=== PATIENT | female | born 1940 | race American Indian/Alaskan Native ===

== ENCOUNTER 2018-06-03 12:55 | Inpatient (IN) | payer MEDICARE ==
[2018-06-03 12:56] VITALS: BMI 31.1
[2018-06-03] MEDS ORDERED: Sodium Chloride 0.9% 1,000 ML IV STA (14:13)
[2018-06-03] MEDS ORDERED: Insulin Regular 1 UNITS/0.01 ML ML IV STA (14:13)
[2018-06-03 14:16] LABS: BASO # 0.03 K/mm3 (0.0-2.0); BASO % 0.4 % (0.0-3.0); EOS # 0.1 (0.0-0.7); EOS % 1.7 % (1.5-5.0); GRAN # 4.5 (1.4-6.5); GRAN % 65.2 % (50.0-68.0); HEMOGLOBIN 14.1 g/dL (12.0-16.0); LYMPH # 1.7 (1.2-3.4); LYMPH % 24.6 % (22.0-35.0); MEAN CELL VOLUME 76.4 fl (80.0-105.0); MEAN CORPUSCULAR HGB CONC 34.1 g/dl (31.0-37.0); MEAN PLATELET VOLUME 11.7 fl (7.0-11.0); MONO # 0.6 (0.1-0.6); MONO % 8.1 % (1.0-6.0); RBC 5.42 10^6/uL (3.5-6.1); RED CELL DISTRIBUTION WIDTH 13.7 % (11.5-14.5); WHITE BLOOD COUNT 6.9 10^3/ul (4.5-11.0)
[2018-06-03 14:38] LABS: ALB/GLOB RATIO 1.3 (1.1-1.8); ALBUMIN 3.8 g/dL (3.0-4.8); CALCIUM 9.7 mg/dL (8.4-10.5)
--- NOTE | 2018-06-03 14:40 | ED PDOC ---
Arrival/HPI - History of Present Illness Time/Duration: 24 hours Symptom Course: Improving Activities at Onset: Light Context: Home - General Chief Complaint: High Blood Sugar Time Seen by Provider: 06/03/18 13:32 - History of Present Illness Narrative History of Present Illness (Text): 06/03/18 14:36 This is a 78 year old female with PMH of diabetes, HT, CABG in 2014 presenting to the ER today for hyperglycemia. Patient was sent to the ER by Dr. Hoyt for possible hyperosmolar hyperglycemic state. Glucose upon ED arrival was 445. Patient admits to forget taking her medications and family members are concerned about patient's increasing confusion in recent months. Patient states she has no current symptoms and denies chest pain, SOB, abdominal pain, headaches, urinary symptoms, fevers, chills, nausea, vomiting, recent travel and recent sickness. Patient admits to 50 pound unintentional weight loss over the last 3 months. (Bari Mccormick) Past Medical History - Provider Review Nursing Documentation Reviewed: Yes - Infectious Disease Hx of Infectious Diseases: None - Reproductive Menopause: Yes - Cardiac Hx HI: Yes (1997) Hx Hypertension: Yes Hx Pacemaker: No - Neurological Hx Paralysis: No - Endocrine/Metabolic Hx Diabetes Mellitus Type 2: Yes - Hematological/Oncological Hx Blood Transfusions: No - Musculoskeletal/Rheumatological Hx Musculoskeletal Disorders: Yes - Psychiatric Hx Emotional Abuse: No Hx Physical Abuse: No Hx Substance Use: No - Anesthesia Hx Anesthesia Reactions: No Hx Malignant Hyperthermia: No - Suicidal Assessment Feels Threatened In Home Enviroment: No Family/Social History - Physician Review Nursing Documentation Reviewed: Yes Family/Social History: Unknown Family HX Smoking Status: Unknown If Ever Smoked Hx Alcohol Use: No Hx Substance Use: No Allergies/Home Meds Allergies/Adverse Reactions: Allergies egg Allergy (Verified 06/03/18 13:14) RASH Penicillins Allergy (Verified 06/03/18 13:14) RASH Home Medications: Home Meds Medication Instructions Recorded Confirmed Clopidogrel [Plavix] 75 mg PO DAILY 04/02/15 06/03/18 Rosuvastatin Calcium [Crestor] 40 mg PO QPM 04/02/15 06/03/18 Alendronate [Fosamax] 70 mg PO DAILY 06/03/18 06/03/18 Olmesartan [BenicarNf] 40 mg PO DAILY 06/03/18 06/03/18 Review of Systems - Physician Review All systems were reviewed & negative as marked: Yes - Review of Systems Constitutional: Weight Change, Other (weight loss of 50 pounds over 3 months). absent: Fevers, Night Sweats Eyes: Normal ENT: Normal Respiratory: Normal. absent: SOB Cardiovascular: Normal. absent: Chest Pain, Syncope Gastrointestinal: Normal Genitourinary Female: Normal Musculoskeletal: Normal Skin: Normal Neurological: Normal Endocrine: Normal Hemo/Lymphatic: Normal Physical Exam Temperature: Afebrile Blood Pressure: Hypertensive Pulse: Regular Respiratory Rate: Normal Appearance: Positive for: Well-Appearing, Non-Toxic, Comfortable Pain Distress: None Mental Status: Positive for: other (Patient is Alert and Oriented x 3 but has delayed answers) Finger Stick Blood Glucose: 445 - Systems Exam Head: Present: Atraumatic, Normocephalic Pupils: Present: PERRL Extroacular Muscles: Present: EOMI Conjunctiva: Present: Normal Mouth: Present: Moist Mucous Membranes Neck: Present: Normal Range of Motion Respiratory/Chest: Present: Clear to Auscultation, Good Air Exchange. No: Respiratory Distress, Accessory Muscle Use Cardiovascular: Present: Regular Rate and Rhythm, Normal S1, S2. No: Murmurs Abdomen: No: Tenderness, Distention, Peritoneal Signs Back: Present: Normal Inspection Upper Extremity: Present: Normal Inspection. No: Cyanosis, Edema Lower Extremity: Present: Normal Inspection. No: Edema Neurological: Present: Speech Normal, Motor Func Grossly Intact, Normal Sensory Function Skin: Present: Warm, Dry, Normal Color. No: Rashes Psychiatric: Present: Alert, Normal Insight, Normal Concentration, Other ( Patient is Alert and Oriented x 3 but has delayed answers when answering questions) Vital Signs Temp Pulse Resp BP Pulse Ox 06/03/18 19:29 85 17 167/71 H 98 06/03/18 16:03 82 18 177/83 H 97 06/03/18 13:09 99.1 F 90 18 152/64 H 98 Medical Decision Making ED Course and Treatment: 06/03/18 17:[address] ogden. patient to be admitted for severe hyperglycemia. as per dr. hoyt, patient has been off her insulin for six months, has a hx of dementia and cannot take care of her self. patient will likely need to be restarted on insulin regimen and eventual placement as she is coming from home and would require safe disposition. (Diogo Jensen) 06/03/18 14:49 Impression: This is a 78 year old female with PMH of diabetes, HT, CABG in 2014 presenting to the ER today for hyperglycemia Differential: Diabetes vs. HHS vs. dementia Plan: Glucose was 445 upon ED admission. Will give fluids and insulin. Check blood work and U/A. Progress: 06/03/18 14:[address] Hoyt who said patient was found by family member with AMS and possibly worsening dementia. Patient to require placement upon discharge. (Bari Mccormick) - Lab Interpretations Microbiology Results: Microbiology Results 06/03/18 16:39 Urine,Clean Catch Urine Culture - Preliminary Gram Positive Cocci Lab Results: 06/03/18 13:42 06/03/18 13:42 Lab Results 06/03/18 17:15: POC Glucose (mg/dL) 375 H 06/03/18 16:49: Urine Color Straw, Urine Appearance Clear, Urine pH 6.5, Ur Specific [place] <= 1.005, Urine Protein Negative, Urine Glucose (UA) >=1000, Urine Ketones Negative, Urine Blood Negative, Urine Nitrate Negative, Urine Bilirubin Negative, Urine Urobilinogen 0.2, Ur Leukocyte Esterase Trace H, Urine RBC Negative, Urine WBC 0 - 2, Ur Epithelial Cells 0 - 2, Urine Bacteria Neg 06/03/18 15:33: POC Glucose (mg/dL) 391 H 06/03/18 14:40: pO2 106 H, VBG pH 7.43, VBG pCO2 41.0, VBG HCO3 27.2, VBG O2 Sat (Calc) 99.5 H, VBG Base Excess 2.6 H 06/03/18 13:42: Sodium 135, Potassium 4.5, Chloride 95 L, Carbon Dioxide 28, Anion Gap 17, BUN 16, Creatinine 1.1, Est GFR ( Amer) 58, Est GFR (Non- Af Amer) 48, Random Glucose 597 H* D, Calcium 9.7, Total Bilirubin 0.6, AST 23, ALT 12, Alkaline Phosphatase 84, Total Protein 6.7, Albumin 3.8, Globulin 2.9, Albumin/Globulin Ratio 1.3 06/03/18 13:42: WBC 6.9, RBC 5.42, Hgb 14.1, Hct 41.4, MCV 76.4 L, MCH 26.0, MCHC 34.1, RDW 13.7, Plt Count 158, MPV 11.7 H, Gran % 65.2, Lymph % (Auto) 24.6 , [place] % (Auto) 8.1 H, Eos % (Auto) 1.7, Baso % (Auto) 0.4, Gran # 4.50, Lymph # (Auto) 1.7, [place] # (Auto) 0.6, Eos # (Auto) 0.1, Baso # (Auto) 0.03 06/03/18 13:22: POC Glucose (mg/dL) 445 H* - Medication Orders Current Medication Orders: Discontinued Medications Amlodipine Besylate (Norvasc) 5 mg PO DAILY [facility] Last Admin: 06/04/18 11:09 Dose: 5 mg Amlodipine Besylate (Norvasc) 5 mg PO STAT STA Stop: 06/04/18 00:20 Last Admin: 06/04/18 00:42 Dose: 5 mg MAR Pulse and Blood Pressure Document 06/04/18 00:42 IMT (Rec: 06/04/18 00:42 IMT [facility] [id number]) Pulse Pulse Rate (60-90) 73 Blood Pressure Blood Pressure (100/60-150/90) 186/68 Amlodipine Besylate (Norvasc) 10 mg PO DAILY [facility] Last Admin: 06/05/18 08:37 Dose: 10 mg MAR Blood Pressure Document 06/05/18 08:37 BRANDY (Rec: 06/05/18 08:37 BRANDY [id number]) Blood Pressure Blood Pressure (100/60-150/90) 170/81 Amlodipine Besylate (Norvasc) 5 mg PO STAT STA Stop: 06/04/18 19:30 Last Admin: 06/04/18 23:26 Dose: 5 mg MAR Pulse and Blood Pressure Document 06/04/18 23:26 IMT (Rec: 06/04/18 23:26 IMT [id number]) Pulse Pulse Rate (60-90) 74 Blood Pressure Blood Pressure (100/60-150/90) 173/72 Clopidogrel Bisulfate (Plavix) 75 mg PO DAILY [facility] Last Admin: 06/05/18 08:38 Dose: 75 mg Dextrose (Dextrose 50% Inj) 0 ml IV STAT PRN; Protocol PRN Reason: Hypoglycemia Protocol Sodium Chloride (Sodium Chloride 0.9%) 1,000 mls @ 999 mls/hr IV .Q1H1M STA Stop: 06/03/18 15:13 Last Admin: 06/03/18 14:37 Dose: 999 mls/hr eMAR Start Stop Document 06/03/18 14:37 MR (Rec: 06/03/18 14:37 [id number]) Intravenous Solution Start Date 06/03/18 Start Time 14:37 End Date 06/03/18 End time 15:37 Total Infusion Time 60 Dextrose (Dextrose 5% In Water 1000 Ml) 1,000 mls @ 0 mls/hr IV .Q0M PRN; Protocol; Per Protocol PRN Reason: Hypoglycemia Protocol Sodium Chloride (Sodium Chloride 0.9%) 1,000 mls @ 100 mls/hr IV .Q10H [place] Last Admin: 06/03/18 17:38 Dose: 100 mls/hr eMAR Start Stop Document 06/03/18 17:38 MR (Rec: 06/03/18 17:38 [id number]) Intravenous Solution Start Date 06/03/18 Start Time 17:38 Insulin Detemir (Levemir) 12 unit SC HS [place] Last Admin: 06/03/18 22:29 Dose: 12 units MAR Blood Glucose Document 06/03/18 22:29 IMT (Rec: 06/03/18 22:29 IMT [id number]) Blood Glucose Finger Stick Blood Glucose (70-120) 267 Subcutaneous Administrations Document 06/03/18 22:29 IMT (Rec: 06/03/18 22:29 IMT [id number]) Injection Site MAR Injection Site Left Arm Charges for Administration # of Subcutaneous Administrations 1 Insulin Detemir (Levemir) 6 unit SC HS [place] Last Admin: 06/04/18 23:26 Dose: 6 units MAR Blood Glucose Document 06/04/18 23:26 IMT (Rec: 06/04/18 23:26 IMT [id number]) Blood Glucose Finger Stick Blood Glucose (70-120) 219 Subcutaneous Administrations Document 06/04/18 23:26 IMT (Rec: 06/04/18 23:26 IMT [id number]) Injection Site MAR Injection Site Left Arm Charges for Administration # of Subcutaneous Administrations 1 Insulin Human Regular (Humulin R) 10 units IV STAT STA Stop: 06/03/18 14:14 Last Admin: 06/03/18 14:38 Dose: 10 units eMAR Start Stop Document 06/03/18 14:38 (Rec: 06/03/18 14:38 [id number]) Intravenous Solution Start Date 06/03/18 Start Time 14:38 End Date 06/03/18 End time 14:39 Total Infusion Time 1 MAR Blood Glucose Document 06/03/18 14:38 MR (Rec: 06/03/18 14:38 [id number]) Blood Glucose Finger Stick Blood Glucose (70-120) 445 Insulin Human Regular (Humulin R Low) 0 units SC ACHS [place] PRN Reason: Protocol Last Admin: 06/05/18 08:39 Dose: Not Given Non-Admin Reason: Blood Sugar Parameter Lorazepam (Ativan) 2 mg IM ONCE ONE PRN Reason: Protocol Stop: 06/04/18 22:44 Metoprolol Tartrate (Lopressor) 100 mg PO DAILY [facility] Last Admin: 06/05/18 08:37 Dose: 100 mg Potassium Chloride (K-Dur 20 Meq Er Tab) 40 meq PO ONCE ONE Stop: 06/04/18 10:23 Last Admin: 06/04/18 17:38 Dose: 40 meq Potassium Chloride (K-Dur 20 Meq Er Tab) 40 meq PO ONCE ONE Stop: 06/04/18 17:07 Last Admin: 06/04/18 19:26 Dose: - PA / ANIMAL HEALTH TECHNICIAN / Resident Statement MARGE has reviewed & agrees with the documentation as recorded. / has examined the patient and agrees with the treatment plan. Disposition/Present on Arrival - Present on Arrival Any Indicators Present on Arrival: No History of DVT/PE: No History of Uncontrolled Diabetes: No Urinary Catheter: No History of Decub. Ulcer: No History Surgical Site Infection Following: None - Disposition Have Diagnosis and Disposition been Completed?: Yes Disposition Time: 20:00 Patient Plan: Admission - Disposition Diagnosis: Hyperglycemia Disposition: HOSPITALIZED Condition: FAIR
[2018-06-03 14:51] LABS: VENOUS BLOOD GAS BASE EXCESS 2.6 mmol/L (0.0-2.0); VENOUS BLOOD GAS PO2 106 mm/Hg (30-55); VENOUS BLOOD PH 7.43 (7.32-7.43)
[2018-06-03 17:01] LABS: PH,URINE 6.5 (4.7-8.0); URINE APPEARANCE CLEAR (CLEAR); URINE BILIRUBIN NEGATIVE (NEGATIVE); URINE BLOOD NEGATIVE (NEGATIVE); URINE COLOR STRAW (YELLOW); URINE GLUCOSE (UA) >=1000 mg/dL (NEGATIVE); URINE LEUKOCYTE ESTERASE TRACE Leu/uL (NEGATIVE); URINE PROTEIN NEGATIVE mg/dL (<30 mg/dL); URINE UROBILINOGEN 0.2 E.U./dL (<1 E.U./dL)
[2018-06-03 17:05] LABS: URINE BACTERIA NEG (NEG); URINE EPITHELIAL CELLS 0 - 2 /hpf (0-5); URINE RBC NEGATIVE /hpf (0-2); URINE WBC 0 - 2 /hpf (0-6)
[2018-06-03] MEDS ORDERED: Dextrose 50% SYRINGE Inj (50 ml) IV PRN (17:23)
[2018-06-03] MEDS ORDERED: Insulin Human NPH/Reg 70/30 Vial(3 ml) SC STA (17:23)
[2018-06-03] MEDS ORDERED: Sodium Chloride 0.9% 1,000 ML IV SCH (17:30)
[2018-06-03] MEDS ORDERED: Insulin Detemir 100 units/ml Vial (Levemir) SC SCH (22:00)
[2018-06-03] MEDS: Insulin Reg-LOW-Coverage SC SCH (22:28)
--- NOTE | 2018-06-04 03:51 | CON ---
DATE: ENDOCRINOLOGY CONSULTATION LOCATION: ER [facility]. HISTORY OF PRESENT ILLNESS: This is a 78-year-old female, very well-known to me with type 2 insulin-requiring diabetes, but was lost to followup since last year and presented to my office today with marked hyperglycemic accelerations and glucose levels close to 500 mg/dL with dehydration and marked weight loss and was referred to the ER for evaluation and eventual admission. PAST MEDICAL HISTORY: As mentioned above, history of type 2 insulin requiring diabetes and was actually on a combination of a premixed insulin regimen with Humulin 70/30 taken as 30 units in the morning, 20 units at lunch time and 30 units at dinner time with Lantus taken as 30 units at bedtime when last seen in 10/2017. However, as per the family and the patient also, she has been extremely forgetful and has actually not been taking her insulin since November of this year as noted. She lives alone and admits to increasing bouts of forgetfulness and confusion as noted. The family members also observed her to have increasing dementia, worse in the last few months prior to admission. History of hypertension and dyslipidemia with coronary artery disease and previous myocardial infarction. She also had coronary artery bypass graft surgery undertaken in 2014 and her press washer actually has been Dr. Kevin Borrego, but again, she has not seen him in the last few years prior to admission. FAMILY HISTORY: Positive for hypertension and heart disease. SOCIAL HISTORY: The patient has supportive family with 3 sons live locally and a daughter who lives in [place], but actually she lives alone with no help for insulin administration at home as noted by the family. No known substance use. REVIEW OF SYSTEMS: As mentioned above. Admits to generalized body weakness with episodic dizziness and lightheadedness worse on the day of admission. Also, admits to bifrontal headaches and marked visual blurring, again, worse in the last few months prior to admission with inability to self administer her own insulin because of the upper mentioned factor also. No chest pains or palpitations, but admits to occasional shortness of breath, especially, on exertion. Her oral intake has been variable with nausea, dyspepsia and vague upper abdominal pains. Also admits to marked polyuria, nocturia and polydipsia and has been consuming bottles of water in the last 2 weeks prior to admission. Also admits to lower extremity paresthesias, especially nocturnally. Also admits to marked weight loss of over 20 pounds in the last 3 months and close to 50 pounds in the last 1 year prior to admission. PHYSICAL EXAMINATION: GENERAL: This an average-built female, in no apparent distress. VITAL SIGNS: Blood pressure of 140/80, pulse of 70 beats per minute regular, temperature 98, respirations 20, height is 5 feet, weight is 112 pounds. HEENT: Head normocephalic. Eyes anicteric with pink conjunctivae. Funduscopy not possible at this time. Ears, Nose and Throat otherwise normal. NECK: Supple. Thyroid gland is normal in size. No carotid bruits or any cervical adenopathy. CARDIOPULMONARY: Some adynamic precordium. S1, S2 is rapid and regular. LUNGS: Clear to auscultation. ABDOMEN: Flat, soft with positive bowel sounds. EXTREMITIES: No peripheral edema. Pulses are +2 bilaterally. SKIN: Her skin turgor is very coarse and dry and buccal mucosa is parched and dry. LABORATORY DATA: WBC 6.9, hemoglobin of 14, hematocrit of 41, MCV 76.4. Chemistries, the initial finger stick in the ER was 445 and the chemistry showed a BUN of 16, sodium 135, potassium 4.5, chloride 95, CO2 is 28, glucose is 597 and creatinine is 1.1. The glucose levels have ranged from 375-391 mg/dL. ASSESSMENT: This is a 78-year-old female with uncontrolled and decompensated type 2 insulin-requiring diabetes, presenting here with hyperosmolar hyperglycemic state and dehydration with marked hyperglycemic accelerations related to inadvertent drug omission from increasing dementia and lapses of forgetfulness with marked confusion and disorientation as noted by the family members in the last few weeks prior to admission. She also has diabetic microvascular complications of retinopathy and polyneuropathy with diabetic microvascular complications of coronary artery disease with previous coronary artery bypass graft surgery as noted. PLAN OF MANAGEMENT: As discussed with the patient and especially, the daughter who was visiting from [place], the imperative need for reinitiation of insulin therapy to optimize her metabolic control will be undertaken starting today as ordered. However, the biggest concern at this time is the patient's increasing lapses of forgetfulness and dementia and the inability to self administer her own insulin at home being that she lives alone at this time with no close family member to self administer the insulin for the patient. Would consult with Brick Washer for a custodial evaluation at this time. The patient is refusing to go with her daughter to [place] since the daughter at this point has actually offered to take care of her mother, but she insists on staying in [place] at this time. We will initiate basal insulin with Levemir to be given as 12 units at bedtime to start tonight. Moreover, we will add premixed insulin regimen with Humulin 70/30 given as 16 units before breakfast and 10 units before dinner to start tomorrow morning and detailed orders have been given. We will modify the coverage scale with a low-dose algorithm using regular insulin and detailed orders have been given also. We will continue the IV hydration with normal saline running at 100 mL/hour as ordered. We will obtain serial chemistries and supplement accordingly as needed. We will follow and advise accordingly. Brenda Brothers MD
--- NOTE | 2018-06-04 07:15 | HP ---
HISTORY OF PRESENT ILLNESS: The patient is 78 years old, was seen by Dr. Brenda Brothers, found to have high blood sugar. She was advised to come to emergency room. Patient is very noncompliant with her medication and with her follow up. According to family, she has been confused, disoriented, not acting herself and she seems to be confused lately. Complained of feeling weak and dizzy. Complained of decreased appetite. Otherwise no nausea, vomiting or diarrhea. No fever, no chills. PAST MEDICAL HISTORY: Significant for; 1. Hypertension. 2. Insulin-dependent diabetes. 3. Hyperlipidemia. 4. Coronary artery disease, status post open heart surgery. PAST SURGICAL HISTORY: Significant for CABG in 2015, status post cardiac cath by Dr. Borrego, had angioplasty done. ALLERGIES: SHE IS ALLERGIC TO EGGS AND PENICILLIN. MEDICATIONS: At home, patient is on; 1. Insulin. 2. Benicar. 3. Tradjenta. 4. Lantus. 5. Crestor. 6. Plavix 75 daily. 7. Amlodipine 5 mg daily. 8. Fosamax 70 mg weekly. 9. Metoprolol 100 mg daily. SOCIAL HISTORY: She lives with her family. Denies smoking or drinking. PHYSICAL EXAMINATION: GENERAL: Somewhat confused and forgetful on examination. She is awake, alert and communicative. VITAL SIGNS: She is afebrile, pulse 90, respirations 18, blood pressure 167/71. LUNGS: Bilateral good airflow. No rhonchi or crackle. HEART: S1 and S2 audible. ABDOMEN: Soft. Nontender. No rebound. No guarding. NEUROLOGICAL: The patient is awake, alert and communicative. EXTREMITIES: Bilateral leg, no edema. LABORATORY EXAM: WBC 6.9, hemoglobin 14, hematocrit 41.4, platelet 158. Chemistry: Sodium 135, potassium 4.5, chloride 95, CO2 of 28, BUN 16, creatinine 1.1, blood sugar of 227. ASSESSMENT: 1. Uncontrolled diabetes. 2. Hyperglycemia. 3. Altered mental status. 4. Metabolic encephalopathy. 5. Coronary artery disease, status post angioplasty. 6. Hypertension. 7. Hyperlipidemia. PLAN: Patient will be admitted in telemetry. We will monitor blood sugar. We will start her on IV fluid. We will monitor her blood sugar closely. Resume her usual medications and we will follow up this patient in a.m. Mitchell Maradiaga MD [facility] # [id number]
[2018-06-04 07:27] LABS: ALB/GLOB RATIO 1.1 (1.1-1.8); ALBUMIN 3.5 g/dL (3.0-4.8); ALT/SGPT 18 U/L (7-56); AST/SGOT 27 U/L (14-36); BLOOD UREA NITROGEN 12 mg/dL (7-21); CALCIUM 9.1 mg/dL (8.4-10.5); GFR AFRICAN-AMERICAN > 60; GFR NON-AFRICAN AMERICAN > 60; HDL CHOLESTEROL 43 mg/dL (29-60)
[2018-06-04] MEDS ORDERED: Insulin Human NPH/Reg 70/30 Vial(3 ml) SC SCH ×2 (07:30→16:30)
[2018-06-04 07:35] LABS: LDL CHOLESTEROL 129 mg/dL (0-129)
[2018-06-04] MEDS: Insulin Reg-LOW-Coverage SC SCH ×4 (08:16→23:24)
[2018-06-04] MEDS ORDERED: Potassium Chloride 20 mEq ER Tab PO ONE ×2 (10:22→17:06)
--- NOTE | 2018-06-04 10:43 | PN ---
DATE: 06/04/2018 ENDOCRINOLOGY FOLLOWUP NOTE LOCATION: Room 572. SUBJECTIVE: This is a 78-year-old female with recent uncontrolled type 2 insulin-requiring diabetes presenting here with marked hyperglycemic accelerations and dehydration and is now being followed closely for metabolic management. Her glycemic levels have improved overnight and the glucose levels have ranged from 227-267 mg/dL. The latest chemistries this morning showed a BUN of 12, sodium 144, potassium 3.5, chloride 107, CO2 of 25, glucose 101 and creatinine 0.8. The biggest concern at this time is the patient's unsafe discharge for home because of the inability to self administer her own insulin because of progressive dementia and confusion and frequent lapses of memory as she lives alone at this time. We will consult with Actuarial Trainee regarding the family options for optimal metabolic control and prevention of further hyperglycemic accelerations thereof. We will continue the IV hydration with normal saline running at 100 mL/hour as ordered. We will also start her on a combination of a premixed insulin regimen and a basal insulin regimen as ordered. We will start her with Humulin 70/30 given as 16 units before breakfast to start today. We will also add Humulin 70/30 given as 10 units before dinner to start tonight. We will continue the basal insulin given as Levemir at 12 units subcu at bedtime daily as ordered. We will continue also the low-dose correction scale using regular insulin as given. We will obtain serial chemistries and supplement accordingly as needed. We will follow. Brenda Brothers MD
[2018-06-04 11:11] LABS: BASO # 0.03 K/mm3 (0.0-2.0); BASO % 0.4 % (0.0-3.0); EOS # 0.2 (0.0-0.7); EOS % 2.5 % (1.5-5.0); GRAN # 3.95 (1.4-6.5); GRAN % 52.2 % (50.0-68.0); HEMOGLOBIN 13.9 g/dL (12.0-16.0); LYMPH # 2.8 (1.2-3.4); LYMPH % 36.8 % (22.0-35.0); MEAN CELL VOLUME 76.9 fl (80.0-105.0); MEAN CORPUSCULAR HEMOGLOBIN 25.9 pg (25.0-35.0); MEAN CORPUSCULAR HGB CONC 33.7 g/dl (31.0-37.0); MEAN PLATELET VOLUME 11.3 fl (7.0-11.0); MONO # 0.6 (0.1-0.6); MONO % 8.1 % (1.0-6.0); RBC 5.36 10^6/uL (3.5-6.1); WHITE BLOOD COUNT 7.6 10^3/ul (4.5-11.0)
--- NOTE | 2018-06-04 13:41 | PN ---
DATE: 06/04/2018 SUBJECTIVE: The patient is 78-year-old seen and examined, lying in bed, seems to be comfortable, fully awake, alert, oriented. According to son who is at the bedside, she is doing better now. He was not aware that mom stopped taking her medication and she started losing weight; however, doing well today. PHYSICAL EXAMINATION: VITAL SIGNS: She is afebrile, pulse 75, respiration 20, blood pressure 180/85. LUNGS: Bilateral good airflow. No rhonchi or crackle. HEART: S1 and S2 audible. ABDOMEN: Soft, nontender. No rebound. No guarding. NEUROLOGICAL: She is awake, alert, oriented, communicative. Moves all extremities. LABORATORY EXAMINATION: WBC 7.6, hemoglobin 13.9, hematocrit 41.2, platelet 171. Chemistry: Sodium 144, potassium 3.5, chloride 107, CO2 25, BUN 12, creatinine 0.8, blood sugar of 101. Hemoglobin A1c 15.8, total cholesterol 201. ASSESSMENT AND PLAN: Uncontrolled diabetes. 2. Status post altered mental status secondary to metabolic encephalopathy. 3. Coronary artery disease status post open heart surgery. 4. Hypertension. 5. Hyperlipidemia. PLAN: We will monitor the patient's blood sugar closely. I will increase her Norvasc to 10 mg since the blood pressure is running high. Physical therapy evaluation has been requested. We will continue IV fluid. Monitor another 24 hours. If she remains stable, she can be discharged in a.m. Mitchell Maradiaga MD
[2018-06-04] MEDS ORDERED: Insulin Detemir 100 units/ml Vial (Levemir) SC SCH (22:00)
[2018-06-05] MEDS ORDERED: Insulin Human NPH/Reg 70/30 Vial(3 ml) SC SCH ×2 (07:30→16:30)
[2018-06-05 08:06] LABS: ALBUMIN 3.5 g/dL (3.0-4.8); ALT/SGPT 20 U/L (7-56); AST/SGOT 31 U/L (14-36); BLOOD UREA NITROGEN 9 mg/dL (7-21); CALCIUM 9.3 mg/dL (8.4-10.5); GFR AFRICAN-AMERICAN > 60; GFR NON-AFRICAN AMERICAN > 60
[2018-06-05] MEDS: Insulin Reg-LOW-Coverage SC SCH (08:39)
[2018-06-05 08:57] VITALS: RESP 20; O2SAT 98
[2018-06-05 17:13] VITALS: BP 158/69; PULSE 62; TEMP 98.1
--- NOTE | 2018-06-05 19:05 | PN ---
DATE: 06/05/2018 ENDOCRINOLOGY FOLLOWUP LOCATION: In room 572. SUBJECTIVE: This is a 78-year-old female with recent uncontrolled type 2 insulin-requiring diabetes, presenting here with marked hyperglycemic accelerations and dehydration and has since then improved clinically and metabolically as noted thereof. Her glycemic levels are much improved as noted overnight and her oral intake is also improving as noted by the nursing staff. Her glucose values today have ranged from 171 to 175 mg/dL. Her latest chemistry showed a BUN of 9. Sodium 143, potassium 3.6, chloride 106, CO2 of 27. Glucose 92. Creatinine 0.7. Her hemoglobin A1c is extremely elevated at 15.8% indicative of very poor outpatient metabolic control of her diabetic condition simply because of her progressive dementia and confusion and disorientation with inability to self administer her own insulin regimen as recommended on the outpatient. So at this time, we will modify her current basal and bolus insulin regimen and increase the Humulin 70/30 to 18 units before breakfast and 12 units before dinner to start today. We will also discontinue her Levemir given as 6 units subcu at bedtime daily for now just to simply the home insulin management of the patient, especially her family will have to help out with the insulin administration to the patient. The social workers trying to arrange also for an adult day care facility who may help for the glucose monitoring and insulin administration for the daytime insulin requirements. We will obtain serial chemistries and supplement accordingly needed. We will follow. Brenda Brothers MD
--- NOTE | 2018-06-06 10:34 | DS ---
HISTORY OF PRESENT ILLNESS: The patient is 78-yeas-old black female, who was brought to Emergency Room because of altered mental status. She was found to have a blood sugar of 597. She was started on IV fluids, she was dehydrated, started on insulin and started to do well. She was seen by Dr. Brenda Brothers who also adjusted her insulin. The patient does admit that she stopped taking her medication because she was tired of taking the medication. The patient states she lives alone, sometimes she does not take medication, her family was not aware of that. PHYSICAL EXAMINATION: GENERAL: She is awake, alert, oriented, communicative, eating and tolerating. VITAL SIGNS: She is afebrile, pulse 62, respirations 20, blood pressure 158/69. LUNGS: Bilateral fair airflow. No rhonchi or crackle. HEART: S1, S2 audible. ABDOMEN: Soft, nontender. No rebound, no guarding. NEUROLOGIC: She is awake, alert, oriented, communicative, ambulatory. LABORATORY DATA: Blood sugar is 175. ASSESSMENT AND PLAN: 1. Uncontrolled hypertension. 2. Uncontrolled diabetes. 3. Altered mental status secondary to hyperglycemia. 4. Metabolic encephalopathy. 5. Coronary artery disease, status post open heart surgery. So, plan is the patient is being discharged home on Benicar 40 mg, Crestor 40 mg daily, amlodipine 10 mg daily. She is going to be on Novolin 70/30 12 units before each meal, before breakfast and dinner. She will follow up with Dr. Brenda Brothers and her primary care. Mitchell Maradiaga MD
== END 2018-06-05 18:00 | disposition home or self-care (01) | DRG 637 ==
LOC: ED 12:55 → ERH 17:34 → 5RSO 20:25
PROVIDERS: ADMIT Internal Medicine; ATTEND Internal Medicine
DX: E11.65 Type 2 diabetes mellitus with hyperglycemia (principal); G93.41 Metabolic encephalopathy; E86.0 Dehydration; E11.319 Type 2 diabetes mellitus with unspecified diabetic retinopathy without macular edema; E11.42 Type 2 diabetes mellitus with diabetic polyneuropathy; E78.5 Hyperlipidemia, unspecified; F03.90 Unspecified dementia, unspecified severity, without behavioral disturbance, psychotic disturbance, mood disturbance, and anxiety; I10 Essential (primary) hypertension; I25.10 Atherosclerotic heart disease of native coronary artery without angina pectoris; I25.2 Old myocardial infarction; Z79.02 Long term (current) use of antithrombotics/antiplatelets; Z79.4 Long term (current) use of insulin; Z79.83 Long term (current) use of bisphosphonates; Z79.899 Other long term (current) drug therapy; Z91.14 Patient's other noncompliance with medication regimen; Z95.1 Presence of aortocoronary bypass graft; Z98.61 Coronary angioplasty status; Z88.0 Allergy status to penicillin; Z91.012 Allergy to eggs

== ENCOUNTER 2019-04-10 13:36 | Inpatient (IN) | payer MEDICARE ==
--- NOTE | 2019-04-10 16:00 | CT ---
Date of service: 04/10/2019 PROCEDURE: CT HEAD WITHOUT CONTRAST. HISTORY: syncope COMPARISON: None available. TECHNIQUE: Axial computed tomography images were obtained through the head/brain without intravenous contrast. Radiation dose: Total exam DLP = 977.62 mGy-cm. This CT exam was performed using one or more of the following dose reduction techniques: Automated exposure control, adjustment of the mA and/or kV according to patient size, and/or use of iterative reconstruction technique. FINDINGS: HEMORRHAGE: No intracranial hemorrhage. BRAIN: No mass effect or edema. Mild chronic periventricular white matter ischemic disease. VENTRICLES: Unremarkable. No hydrocephalus. CALVARIUM: Unremarkable. PARANASAL SINUSES: Unremarkable as visualized. No significant inflammatory changes. MASTOID AIR CELLS: Unremarkable as visualized. No inflammatory changes. OTHER FINDINGS: None. IMPRESSION: No acute hemorrhage.
[2019-04-10 16:02] LABS: BASO # 0.02 K/mm3 (0.0-2.0); BASO % 0.2 % (0.0-3.0); EOS # 0.1 (0.0-0.7); EOS % 0.9 % (1.5-5.0); HEMOGLOBIN 14.9 g/dL (12.0-16.0); LYMPH # 2.1 (1.2-3.4); LYMPH % 16.5 % (22.0-35.0); MEAN CELL VOLUME 77.9 fl (80.0-105.0); MEAN CORPUSCULAR HEMOGLOBIN 26.1 pg (25.0-35.0); MEAN CORPUSCULAR HGB CONC 33.5 g/dl (31.0-37.0); MONO # 0.9 (0.1-0.6); MONO % 6.9 % (1.0-6.0); RBC 5.71 10^6/uL (3.5-6.1); RED CELL DISTRIBUTION WIDTH 14.3 % (11.5-14.5); WHITE BLOOD COUNT 12.4 10^3/uL (4.5-11.0)
[2019-04-10 16:03] LABS: ALB/GLOB RATIO 1.1 (1.1-1.8); ALBUMIN 4.4 g/dL (3.0-4.8); CALCIUM 9.9 mg/dL (8.4-10.5)
[2019-04-10 16:14] LABS: TROPONIN I 0.02 ng/mL
[2019-04-10 16:51] LABS: URINE APPEARANCE CLEAR (CLEAR); URINE BILIRUBIN NEGATIVE (NEGATIVE); URINE BLOOD NEGATIVE (NEGATIVE); URINE COLOR YELLOW (YELLOW); URINE GLUCOSE (UA) NEGATIVE (NEGATIVE); URINE LEUKOCYTE ESTERASE NEGATIVE Leu/uL (NEGATIVE); URINE PROTEIN 30 mg/dL (<30 mg/dL); URINE UROBILINOGEN 0.2 E.U./dL (<1 E.U./dL)
[2019-04-10 16:54] LABS: URINE RBC 0 - 2 /hpf (0-2)
--- NOTE | 2019-04-10 17:02 | RAD ---
HISTORY: syncope COMPARISON: None available. TECHNIQUE: Chest, one view. FINDINGS: LUNGS: No focal consolidation. Please note that chest x-ray has limited sensitivity for the detection of pulmonary masses. PLEURA: No significant pleural effusion identified. No definite pneumothorax . CARDIOVASCULAR: Median sternotomy wires. Cardiomegaly. Atherosclerotic calcifications of an ectatic aorta. OSSEOUS STRUCTURES: Degenerative changes. VISUALIZED UPPER ABDOMEN: Unremarkable. OTHER FINDINGS: None. IMPRESSION: Cardiomegaly. Ectatic aorta containing dense atherosclerotic calcifications. Median sternotomy wires with evidence of CABG.
--- NOTE | 2019-04-10 17:22 | ED PDOC ---
Arrival/HPI - General Chief Complaint: Lower Extremity Problem/Injury Time Seen by Provider: 04/10/19 13:55 Historian: Patient, Family - History of Present Illness Narrative History of Present Illness (Text): 04/10/19 17:05 78-year-old female with a history of CABG, high cholesterol, diabetes presents today brought in by family for left ankle pain. Per patient's son, the patient was found on the ground upon arrival this morning. The patient states she is not exactly sure what happened she remembers walking from the bathroom back to the bedroom and then was found on the ground. Patient denies chest pain or shortness of breath. She denies abdominal pain. She denies urinary symptoms. She denies fevers or chills. Patient denies headaches dizziness or weakness. Patient is complaining only of pain to the left ankle. Patient's son states that the patient's sugar was 56 this morning. Patient denies numbness weakness or tingling in the extremity. Complaining of slight left knee pain and a bruise to the right knee. No medications have been taken at home. No other complaints. Symptom Course: Unchanged Past Medical History - Provider Review Nursing Documentation Reviewed: Yes - Travel History Have you recently traveled outside [place] w/in the past 3 mons?: No - Infectious Disease Hx of Infectious Diseases: None - Reproductive Menopause: Yes - Cardiac Hx CO: Yes (1997) Hx Hypertension: Yes Hx Pacemaker: No - Neurological Hx Paralysis: No - Endocrine/Metabolic Hx Diabetes Mellitus Type 2: Yes - Hematological/Oncological Hx Blood Transfusions: No - Musculoskeletal/Rheumatological Hx Musculoskeletal Disorders: Yes Hx Osteoporosis: Yes - Psychiatric Hx Emotional Abuse: No Hx Physical Abuse: No Hx Substance Use: No - Surgical History Hx Coronary Artery Bypass Graft: Yes Hx Open Heart Surgery: Yes - Anesthesia Hx Anesthesia Reactions: No Hx Malignant Hyperthermia: No - Suicidal Assessment Feels Threatened In Home Enviroment: No Family/Social History - Physician Review Nursing Documentation Reviewed: Yes Family/Social History: Unknown Family HX Smoking Status: Unknown If Ever Smoked Hx Alcohol Use: No Hx Substance Use: No Allergies/Home Meds Allergies/Adverse Reactions: Allergies egg Allergy (Verified 04/10/19 13:55) RASH Penicillins Allergy (Verified 04/10/19 13:55) RASH Home Medications: Home Meds Medication Instructions Recorded Confirmed Clopidogrel [Plavix] 75 mg PO DAILY 04/02/15 04/10/19 Rosuvastatin Calcium [Crestor] 40 mg PO QPM 04/02/15 04/10/19 Alendronate [Fosamax] 70 mg PO DAILY 06/03/18 04/10/19 Olmesartan [BenicarNf] 40 mg PO DAILY 06/03/18 04/10/19 Review of Systems - Review of Systems Constitutional: absent: Fatigue, Fevers ENT: absent: Sore Throat, Sinus Congestion Respiratory: absent: SOB, Cough Cardiovascular: absent: Chest Pain, Palpitations Gastrointestinal: absent: Abdominal Pain, Constipation, Diarrhea, Nausea, Vomiting Genitourinary Female: absent: Dysuria, Frequency, Hematuria Musculoskeletal: Arthralgias (left ankle pain). absent: Back Pain, Neck Pain Skin: absent: Rash, Pruritis Neurological: absent: Headache, Dizziness Psychiatric: absent: Anxiety, Depression, Suicidal Ideation Physical Exam Vital Signs Reviewed: Yes Vital Signs Temp Pulse Resp BP Pulse Ox 04/10/19 16:19 62 15 131/60 99 04/10/19 13:50 98.5 F 61 18 148/65 98 Temperature: Afebrile Blood Pressure: Normal Pulse: Regular Respiratory Rate: Normal Appearance: Positive for: Well-Appearing, Non-Toxic, Comfortable Pain Distress: None Mental Status: Positive for: Alert and Oriented X 3 - Systems Exam Head: Present: Atraumatic Mouth: Present: Moist Mucous Membranes Neck: Present: Normal Range of Motion, Trachea Midline. No: MIDLINE TENDERNESS, Paraspinal Tenderness Respiratory/Chest: Present: Clear to Auscultation, Good Air Exchange. No: Respiratory Distress, Accessory Muscle Use Cardiovascular: Present: Regular Rate and Rhythm, Normal S1, S2. No: Murmurs Abdomen: No: Tenderness, Distention, Peritoneal Signs Back: Present: Normal Inspection. No: CVA Tenderness, Midline Tenderness, Paraspinal Tenderness Lower Extremity: Present: NORMAL PULSES, Normal ROM, Tenderness (left ankle: + ttp over the lateral malleolus; + edema, full rom of ankle with pain; sensation and distal pulses intact; cap refill <2. ), Swelling, Neurovascularly Intact, Capillary Refill < 2 s. No: CALF TENDERNESS, Temperature Abnormalties Neurological: Present: GCS=15, Speech Normal Skin: Present: Warm, Dry, Normal Color. No: Rashes Psychiatric: Present: Alert, Oriented x 3 Medical Decision Making ED Course and Treatment: 04/10/19 17:41 78-year-old female with left ankle pain status post possible syncopal episode X-rays of the left ankle: Positive fracture of the distal fibula Patient placed in a short leg posterior splint. CBC white blood cell count 12.4 CMP BUN 31 creatinine 1.5 glucose 60. On fingerstick the patient's sugar was 46. She was given crackers and juice. Heart healthy consistent carb diet ordered. q2 hour fingersticks ordered Troponin: 0.02 UA within normal limits Chest x-ray shows no infiltrate or effusion positive cardiomegaly EKG: Normal sinus rhythm at 60 bpm with a left bundle branch block QTC 476. There is no EKG for comparison. Patient is without chest pain. case discussed with dr. ogden; accepts admission for syncope, hypoglycemia, ankle fracture; will consult dr. patel for ankle fracture and dr. lee for extension professor. pt given tylenol for pain. pt reassessment; resting comfortably ; no distress. stable vitals. alert and oriented. impression; syncope, ankle fracture, hypoglycemia, renal insufficiency admit obs to tele. - Lab Interpretations Lab Results: Troponin I 0.02 ng/mL 04/10/19 15:30 Total Bilirubin 0.7 mg/dL (0.2-1.3) 04/10/19 15:30 AST 37 U/L (14-36) H 04/10/19 15:30 ALT 14 U/L (7-56) 04/10/19 15:30 Alkaline Phosphatase 65 U/L (38-126) 04/10/19 15:30 Total Protein 8.3 g/dL (5.8-8.3) 04/10/19 15:30 Albumin 4.4 g/dL (3.0-4.8) 04/10/19 15:30 Globulin 3.9 gm/dL 04/10/19 15:30 Albumin/Globulin Ratio 1.1 (1.1-1.8) 04/10/19 15:30 Urine Color Yellow (YELLOW) 04/10/19 16:45 Urine Appearance Clear (CLEAR) 04/10/19 16:45 Urine pH 6.0 (4.7-8.0) 04/10/19 16:45 Ur Specific [place] 1.010 (1.005-1.035) 04/10/19 16:45 Urine Protein 30 mg/dL (<30 mg/dL) H 04/10/19 16:45 Urine Glucose (UA) Negative mg/dL (NEGATIVE) 04/10/19 16:45 Urine Ketones Negative mg/dL (NEGATIVE) 04/10/19 16:45 Urine Blood Negative (NEGATIVE) 04/10/19 16:45 Urine Nitrate Negative (NEGATIVE) 04/10/19 16:45 Urine Bilirubin Negative (NEGATIVE) 04/10/19 16:45 Urine Urobilinogen 0.2 E.U./dL (<1 E.U./dL) 04/10/19 16:45 Ur Leukocyte Esterase Negative Surekha/uL (NEGATIVE) 04/10/19 16:45 Urine RBC 0 - 2 /hpf (0-2) 04/10/19 16:45 Urine WBC None /hpf (0-6) 04/10/19 16:45 Ur Epithelial Cells None /hpf (0-5) 04/10/19 16:45 - RAD Interpretation Radiology Orders: 04/10/19 15:01 CHEST ONE VIEW [RAD] Stat 04/10/19 15:14 HEAD W/O CONTRAST [CT] Stat 04/10/19 15:15 ANKLE LEFT 3 VIEWS ROUTINE [RAD] Stat KNEE WITH PATELLA LEFT 3 VIEW [RAD] Stat Procedures - Splinting Location: left ankle Hand-Made Type: fiberglass Splint: short leg posterior splint Pre-Proc Neuro Vasc Exam: normal Post-Proc Neuro Vasc Exam: normal Disposition/Present on Arrival - Present on Arrival Any Indicators Present on Arrival: No History of DVT/PE: No History of Uncontrolled Diabetes: No Urinary Catheter: No History of Decub. Ulcer: No History Surgical Site Infection Following: None - Disposition Have Diagnosis and Disposition been Completed?: Yes Diagnosis: Syncope, Ankle fracture, Hypoglycemia, Renal insufficiency Disposition: HOSPITALIZED Disposition Time: 16:00 Patient Plan: Observation Patient Problems: Current Active Problems Problem Status Onset Ankle fracture Acute Hypoglycemia Acute Renal insufficiency Acute Syncope Acute Condition: FAIR
--- NOTE | 2019-04-10 18:44 | CARD ---
APPROVED REPORT Date of service: 04/10/2019 EKG Measurement Heart [id number] <Conclusion> Normal sinus rhythm Left bundle branch block Abnormal ECG
[2019-04-10] MEDS ORDERED: Insulin Human NPH/Reg 70/30 Vial(3 ml) SC SCH (18:45)
--- NOTE | 2019-04-10 18:47 | RAD ---
Date of service: 04/10/2019 PROCEDURE: Left Ankle Radiographs. HISTORY: ankle pain COMPARISON: No prior study available for comparison. TECHNIQUE: 3 views obtained. FINDINGS: BONES: There is a minimally displaced oblique fracture traversing the distal on aspect of the lateral malleolus. Significant overlying lateral and anterior soft tissue swelling present. JOINTS: Ankle mortise maintained. SOFT TISSUES: As above. Minimal medial soft tissue swelling OTHER FINDINGS: None. IMPRESSION: There is a minimally displaced oblique fracture traversing the distal aspect of the lateral malleolus with significant lateral and anterior soft tissue swelling
--- NOTE | 2019-04-10 18:49 | RAD ---
Date of service: 04/10/2019 PROCEDURE: Left Knee Radiographs. HISTORY: Pain. COMPARISON: No prior study available for comparison TECHNIQUE: 2 views obtained. FINDINGS: BONES: No evidence of acute displaced fracture nor dislocation. The osseous structures appear intact. JOINTS: There appears to be a small anterior superior patella enthesophyte and tiny posterior inferior patella osteophyte. JOINT EFFUSION: There is a small suprapatellar joint effusion. OTHER FINDINGS: Metallic clips seen with posteromedial soft tissues at the level of the knee may represent sequela of a prior saphenous vein harvest. Clinical correlation recommended. IMPRESSION: No evidence of acute displaced fracture nor dislocation. Small suprapatellar joint effusion.
[2019-04-10 20:19] VITALS: BMI 19.1
[2019-04-10] MEDS ORDERED: Pneumococcal 23-Valent Vaccine IM ONE (20:20)
--- NOTE | 2019-04-11 00:28 | HP ---
DATE OF EXAM: 04/10/2019 HISTORY OF PRESENT ILLNESS: The patient is a 78-year-old, who was brought to emergency room after she fell. She was unable to get up or walk. Son found her on the floor. As per the patient's son when he walked into the house, he found her sitting on the floor, but the patient does not recall what happened, the only thing remember she was walking from the bathroom back to the bedroom and next thing she found herself on the ground. There is no history of chest pain. No shortness of breath. No abdominal pain. No nausea or vomiting. No diarrhea. No fever. No chills. No headache. No dizziness. Only complain of pain in the left ankle area. Complain of pain in the left knee and bruise to the right knee. PAST MEDICAL HISTORY: She has significant past medical history of: 1. Coronary artery disease, status post open heart surgery. 2. Hyperlipidemia. 3. Noninsulin-dependent diabetes. PAST SURGICAL HISTORY: Significant for open heart surgery in 2014, status post cardiac cath by Dr. Borrego and had angioplasty done. ALLERGIES: SHE IS ALLERGIC TO EGGS AND PENICILLIN. MEDICATIONS AT HOME: She is on amlodipine 10 mg daily, Crestor 40 mg daily, olmesartan 40 mg daily, metoprolol 100 mg at bedtime, insulin, Plavix 75 daily, and Fosamax 70 mg weekly. SOCIAL HISTORY: Denies smoking, drinking, or alcohol use. PHYSICAL EXAMINATION: GENERAL: Complain of pain in the left ankle. VITAL SIGNS: She is afebrile, pulse 62, respirations 18, and blood pressure 131/60. LUNGS: Bilateral fair airflow. No rhonchi or crackle. HEART: S1 and S2 audible. ABDOMEN: Soft. Nontender. No rebound. No guarding. NEUROLOGICAL: The patient is awake and alert and able to communicate. EXTREMITIES: Left ankle is in the brace. LABORATORY DATA: WBC 12.4, hemoglobin 14.9, hematocrit 44.5, and platelet 174. Chemistry; sodium 140, potassium 3.7, chloride 103, CO2 of 25, BUN 31, creatinine 1.5, and blood sugar of 60. LFTs are within normal limits. LDH is 996. Urinalysis shows protein. X-ray of the ankle and the lower extremity shows fibular fracture and ankle fracture. ASSESSMENT: 1. Status post fall secondary to syncope, etiology unclear probably hypoglycemia versus cardiac arrhythmia. 2. Noninsulin-dependent diabetes. 3. Hypertension. 4. Hyperlipidemia. 5. History of coronary artery disease, status post open heart surgery. PLAN: The patient will be admitted to telemetry. We will start cardiac monitoring. Give her analgesics. Resume her medications. I will order for carotid Doppler. Follow up cardiac enzymes. Dr. Borrego has been consulted. has been consulted also. Monitor her blood sugar. We will follow up with the patient in a.m. Mitchell Maradiaga MD
[2019-04-11] MEDS: HYDROmorphone 2 mg/ml ISec IVP PRN (00:38)
[2019-04-11] MEDS: Insulin Lispro (humaLOG) MEDIUM Coverage SC SCH ×3 (04:41→12:30)
[2019-04-11 07:12] LABS: TROPONIN I 0.03 ng/mL
[2019-04-11 07:20] LABS: FREE T4 2.09 ng/dL (0.78-2.19)
[2019-04-11 07:22] LABS: ALB/GLOB RATIO 1.1 (1.1-1.8); ALBUMIN 3.9 g/dL (3.0-4.8); CALCIUM 9.5 mg/dL (8.4-10.5)
[2019-04-11] MEDS ORDERED: Insulin Human NPH/Reg 70/30 Vial(3 ml) SC SCH (07:30)
--- NOTE | 2019-04-11 10:42 | US ---
PROCEDURE: Bilateral carotid artery duplex ultrasound HISTORY: Carotid stenosis syncope PHYSICIAN(S): Kevin Morris MD. TECHNIQUE: Duplex sonography and color-flow Doppler were used to evaluate the carotid bifurcations and limited segments of the vertebral arteries bilaterally. FINDINGS: There is moderate to extensive smooth heterogeneous echogenic plaque noted at the carotid bifurcations bilaterally. The peak systolic velocity in the proximal right internal carotid artery is 151 cm/sec. This corresponds to a 60-79 percent proximal right ICA stenosis. Normal systolic velocities are noted in the proximal right external carotid artery. There is antegrade flow in the right vertebral artery. The origin of the left internal carotid artery is obscured by shadowing plaque. The peak systolic velocity in the proximal left internal carotid artery is 286 cm/sec. The end-diastolic velocity at this position is 49 cm/second. This corresponds to a 80 percent proximal left ICA stenosis. Normal systolic velocities are noted in the proximal left external carotid artery. There is antegrade flow in the left vertebral artery. IMPRESSION: 1. 80 percent proximal left internal carotid artery stenosis. The origin of obscured by shadowing plaque. If clinically indicated, further evaluation with CTA or MRA can be considered 2. 60-79 percent proximal right ICA stenosis 3. Antegrade flow in both vertebral arteries.
--- NOTE | 2019-04-11 13:30 | CON ---
DATE OF CONSULTATION: 04/11/2019 CARDIOLOGY CONSULTATION HISTORY: The patient is a 78-year-old woman, who is found on the floor by her family. She was found to have a fractured ankle. The sequences leading up to her fall versus syncope are unclear PAST MEDICAL HISTORY: The patient's past medical history includes hypertension, history of coronary artery bypass surgery, history of CAD, hypercholesterolemia, and hypertension. The patient denies chest pain, denies shortness of breath. SOCIAL HISTORY: The patient does not smoke. REVIEW OF SYSTEMS: Free of all cardiac symptomatology. PHYSICAL EXAMINATION: VITAL SIGNS: Stable. Heart rate is stable. NECK: Negative JVD. LUNGS: Without rales. CARDIAC: Heart rate S1, S2. EXTREMITIES: Without edema. EKG shows normal sinus rhythm with left bundle-branch block. LABORATORY DATA: Laboratories are negative for acute coronary syndrome. Preliminary echocardiogram reveals good LV function with no aortic stenosis. IMPRESSION: 1. Status post fall versus syncope. 2. Fractured left ankle 3. Stable angina. 4. History of coronary bypass surgery. 5. Coronary artery disease. 6. Carotid artery disease. 7. Hypercholesterolemia. PLAN: Given these findings, there are no cardiac contraindications for possible left ankle surgery. I have discussed with the patient about the need for further workup of her carotid disease as well as her coronary artery disease. We will schedule her for an outpatient stress test in 2-3 weeks once she is recovered from her fractured ankle. Kevin Borrego MD
--- NOTE | 2019-04-11 15:41 | CON ---
DATE: 04/11/2019 CHIEF COMPLAINT: Syncope. HISTORY OF PRESENT ILLNESS: This is a 78-year-old woman with history of type 2 diabetes mellitus, coronary artery disease status post CABG, and hyperlipidemia, who cannot really was able to get up or walk. She reported to the ER as she had fallen. She is on recall whether she had passed out or not, though think she might be waking up walking from the bathroom back to the bed and next thing she found herself on the floor. She has some cognitive impairment which is seen on neuro examination. She also has a left ankle fracture sustained which is in the bandage. She had a carotid Doppler done which showed 80% possible left carotid artery stenosis and 67% right ICA stenosis. She should be on aspirin and Plavix and Lipitor 40 mg given her carotid artery disease and consult with Dr. Kevin Morris should be obtain for further management. REVIEW OF SYSTEMS: A 14-point review of systems is negative except per the HPI. PAST MEDICAL HISTORY: As above. SOCIAL HISTORY: No illicit drug use, smoking, or EtOH abuse. ALLERGIES: ALLERGIC TO EGGS AND PENICILLIN. FAMILY HISTORY: Noncontributory. MEDICATIONS: Reviewed by nurses' reconciliation sheet. LABORATORY DATA: Sodium 138, potassium 3.6, chloride 102, carbon dioxide 26, BUN of 25, creatinine 1.2, and random glucose of 42. PHYSICAL EXAMINATION: GENERAL: The patient is sitting up in bed, in no acute distress. VITAL SIGNS: Temperature 98, blood pressure 134/63, respiratory rate of 19, and oxygen saturation 96% on room air. HEENT: Atraumatic, normocephalic. PERRLA. Extraocular muscles intact. NECK: Supple. No JVD. No adenopathy noted. LUNGS: Clear to auscultation. No adventitious sounds. HEART: S1 and S2, normal rate and rhythm. No murmurs, rubs or gallops. ABDOMEN: Soft, nontender, and nondistended. Bowel sounds present. EXTREMITIES: No clubbing. No cyanosis. Peripheral pulses 2+ felt bilaterally NEUROLOGIC: The patient is alert and oriented to person, place, and year. Recall after 5 minutes 0/3. Poor attention span. Slow thought process. Cranial nerves II through XII are intact. Motor exam; moves all extremities equally. No pronator drift seen. Sensory exam; decreased light touch and pinprick up to the calves bilaterally. Decreased vibration at the toes. DTRs are 2+ and one at both knees and ankles. Coordination; [id number] intact. No dysmetria noted. IMPRESSION: Syncope could likely be secondary to multifactorial from transit hypoglycemic events since she had transient hypoglycemic such as initially came in with 60 and 47 in addition, carotid artery disease in terms left internal carotid artery stenosis of 80% and right internal carotid artery stenosis of 67% seen on color Doppler. RECOMMENDATIONS: At this time I recommend; 1. Aspirin 81 mg, Plavix 75 mg, and Lipitor 40 mg for stroke prevention. 2. Vascular consult Dr. Kevin Morris in terms of further evaluation and possible CT angio of the neck ,we will assess further. Evaluation of the left ICA stenosis and possible left carotid endarterectomy could be considered. 3. Monitor electrolytes accordingly. 4. Keep blood sugar to 140 to 180 and avoid hypoglycemic events and PT/OT evaluation. Thank you for this consult. Glen Ruiz MD
[2019-04-11] MEDS: Insulin Lispro (humaLOG) LOW Coverage SC SCH ×2 (17:15→22:00)
[2019-04-11] MEDS: Insulin Human NPH/Reg 70/30 Vial(3 ml) SC SCH (17:43)
[2019-04-11] MEDS ORDERED: Iohexol 350 MG/100 ML VIAL ONE (19:20)
[2019-04-11] MEDS: Sodium Chloride 0.45% 1,000 ML IV SCH (20:30)
--- NOTE | 2019-04-11 21:40 | CON ---
DATE: 04/11/2019 REASON FOR CONSULTATION: A left ankle fracture. HISTORY OF PRESENT ILLNESS: This is a 78-year-old female who had a fall yesterday, who presented to the emergency room with complaints of left ankle pain. The patient is currently getting worked up for a syncopal episode and does not really remember the fall. Today, she complains of left ankle pain, but denies any other injuries. PHYSICAL EXAMINATION GENERAL: She is awake, alert, and oriented x3 and answers all questions appropriately. EXTREMITIES: Evaluation of left lower extremity shows she has a posterior splint on the left ankle. She can actively do a straight leg raise of the left lower extremity, has no pain on passive range of motion of hip. Her thigh is soft and nontender. There is no crepitus. Evaluation of the left knee shows no obvious effusion and she has tolerating active range of motion of the knee without any pain. Her calf is otherwise soft. Elevation of the left ankle shows that she does have lateral tenderness to palpation and really no significant medial tenderness to palpation. She is moving all her toes without difficulty and has a palpable DP pulse. Grossly, she is neurovascularly intact. DIAGNOSTIC DATA: X-rays of the left ankle show what looks like a minimally displaced lateral malleolus fracture, but the mortise appears to be well maintained. X-rays of her left knee show no acute fracture or dislocation. Some degenerative changes are noted. IMPRESSION: Left ankle lateral malleolus fracture. PLAN: At this point, recommendations will be for non-operative management for her fracture. The plan at this point would be to convert her into a short-leg cast once the soft tissue swelling has subsided. For now, recommend that she gets physical therapy for gait training. She can toe touch on the left lower extremity. Ice, elevation, pain medications as needed. She will have her followup in my office on for repeat x-rays and reevaluation. Jesus Momin MD
--- NOTE | 2019-04-12 01:06 | PN ---
DATE: 04/11/2019 SUBJECTIVE: The patient is a 78-year-old black female, sitting in chair, seems to be comfortable. Complained of pain in the left foot. PHYSICAL EXAMINATION: VITAL SIGNS: She is afebrile. Pulse 77, respirations 19, blood pressure 138/59. LUNGS: Bilateral fair airflow. No rhonchi or crackle. HEART: S1 and S2 audible. ABDOMEN: Soft, nontender. No rebound. No guarding. NEUROLOGICAL: The patient is awake and alert. Able to communicate. Left ankle and foot is under dressing. LABORATORY EXAM: Sodium 138, potassium 3.6, chloride 102, CO2 of 22, BUN 25, creatinine 1.3. Blood sugar 242. Echocardiogram is pending. Carotid artery ultrasound shows 80% proximal left internal carotid artery stenosis, obscured and 60% to 79% proximal right ICA. ASSESSMENT: 1. Status post syncope. 2. Left foot ankle fracture. 3. Non-insulin dependent diabetes. 4. Renal insufficiency. 5. Status post fall and left ankle fracture. PLAN: Plan is I will order for CTA to further evaluate carotid stenosis. Awaiting Ortho evaluation. If she needs intervention, it will be treated conservatively. We will start her on intravenous fluids to avoid acute kidney injury. Monitor blood sugar, and we will follow this patient in a.m. Mitchell Maradiaga MD
--- NOTE | 2019-04-12 02:39 | CP.PCM.PN ---
Subjective - Date & Time of Evaluation Date of Evaluation: 04/12/19 Time of Evaluation: 02:38 - Subjective Subjective: Patient was seen at bedside. She needed a heplcok inserted. Also, an order for 0.5 mg of Ativan IV was ordered by biomedical equipment tech for a gitation and I had to sign that. Patient is confused. Agitated. Medical record was reviewed. This 78 year old woman was admitted after she fell and was not able to get up and walk. Has PMH of CAD, S/P open heart surgery, NIDDM,HLD. Objective - Vital Signs/Intake and Output Vital Signs (last 24 hours): Temp Pulse Resp BP Pulse Ox 98.4 F 75 20 130/60 85 L 04/12/19 00:01 04/12/19 00:01 04/12/19 00:01 04/12/19 00:01 04/12/19 00:01 - Medications Medications: Current Medications Amlodipine Besylate (Norvasc) 10 mg PO DAILY [facility] Last Admin: 04/11/19 11:05 Dose: 10 mg Hydromorphone HCl (Dilaudid) 1 mg IVP Q4H PRN PRN Reason: Pain, moderate (4-7) Last Admin: 04/11/19 00:38 Dose: 1 mg Sodium Chloride (Sodium Chloride 0.45%) 1,000 mls @ 75 mls/hr IV .[id number] [facility] Last Admin: 04/11/19 20:30 Dose: 75 mls/hr Insulin Human Lispro (Humalog Low) 0 units SC ACHS [facility]; Protocol Last Admin: 04/11/19 17:15 Dose: Not Given - Labs Labs: 04/10/19 15:30 04/11/19 06:20 - Constitutional Appears: Well, No Acute Distress - Head Exam Head Exam: ATRAUMATIC, NORMAL INSPECTION, NORMOCEPHALIC - Eye Exam Eye Exam: Normal appearance - ENT Exam ENT Exam: Normal External Ear Exam - Neck Exam Neck Exam: Normal Inspection - Respiratory Exam Respiratory Exam: NORMAL BREATHING PATTERN - Cardiovascular Exam Cardiovascular Exam: absent: JVD - GI/Abdominal Exam GI & Abdominal Exam: absent: Distended - Rectal Exam Rectal Exam: Deferred - Exam Additional comments: Deferred. - Extremities Exam Extremities Exam: Normal Inspection - Back Exam Back Exam: NORMAL INSPECTION - Neurological Exam Neurological Exam: Altered - Psychiatric Exam Psychiatric exam: Agitated - Skin Skin Exam: Normal Color Assessment and Plan - Assessment and Plan (Free Text) Assessment: Poor venous access. Agitation. CAD. S/P open heart surgery. NIDDM HLD. Plan: Ativan 0.5 mg by resident. # 22 angiocath was inserted in lft arm. When I was in the ER, Dr. Tamez received a result of CTA head from [facility]. I had asked him to call residential air sealing technician. Later on , I reviewed the result on the floor. I asked the nurse to notify at 07:00 .
--- NOTE | 2019-04-12 02:48 | CON ---
DATE: 04/11/2019 ENDOCRINOLOGY CONSULTATION The patient was seen in Room #267. HISTORY OF PRESENT ILLNESS: This is a 78-year-old female with known history of type 2 insulin-requiring diabetes, presenting here with an apparent syncopal episode and sustained a left ankle fracture in the distal fibula and is now being referred for diabetic evaluation because of extremes of glycemic fluctuations as noted thereof. Her glucose levels at home were actually in the low 50s and here had a glucose level of 47 mg last night. PAST MEDICAL HISTORY As mentioned above, history of type 2 insulin-requiring diabetes, on a premixed insulin regimen at home using Humulin 70/30, given as 18 units before breakfast and 12 units before dinner and this is actually administered by the son, Jordon, who is very attentive and supportive of his mother. He also does the home glucose monitoring levels as noted. History of hypertension and dyslipidemia, history of coronary artery disease with a previous coronary artery bypass graft surgery, history of diabetic retinopathy, polyneuropathy, and nephropathy with underlying chronic kidney disease, history of carotid stenosis, peripheral arterial disease, and vasculopathy. FAMILY HISTORY Positive for diabetes and hypertension. SOCIAL HISTORY: The patient has a very supportive family with her sons and their families taking turns attending to her needs at home. No known substance use. REVIEW OF SYSTEMS: As mentioned above, admits to generalized body weakness with episodic bouts of dizziness and lightheadedness with an apparent syncopal episode on the day of admission. No chest pains or palpitations, but admits to episodic shortness of breath especially on exertion. Her oral intake has been variable with dyspepsia and nausea and variable oral intake as per the son; also admits to occasional nocturia and polyuria with habitual constipation. She admits now to left ankle pain noted with this current admission. PHYSICAL EXAMINATION: GENERAL: This is an average-built female in no apparent distress. VITAL SIGNS: Blood pressure of 150/90, pulse of 100 beats per minute, regular, temperature 98, respirations 20, height is 4 feet 11 inches, weight is 95 pounds. HEENT: Head normocephalic. Eyes anicteric with pink conjunctivae. Funduscopy not possible at this time. Ears, nose, and throat otherwise normal. NECK: Supple. Thyroid gland is normal in size. No carotid bruits or cervical adenopathy. CARDIOPULMONARY: Some adynamic precordium. S1, S2 is rapid and regular. LUNGS: Clear to auscultation. ABDOMEN: Flat, soft with positive bowel sounds. EXTREMITIES: No peripheral edema. Pulses are +2 bilaterally. The left distal lower extremity is now in a splint as noted. LABORATORY DATA: Her chemistries showed a BUN of 25, sodium 138, potassium is 3.6, chloride 102, CO2 of 26, glucose 242, and creatinine 1.3. ASSESSMENT: This is a 78-year-old female with uncontrolled and decompensated type 2 insulin-requiring diabetes with extremes of glycemic fluctuations related to the variability of her oral intake as noted. She presents here with an apparent syncopal episode and sustained a left distal fibular fracture as noted. She also has diabetic microvascular complications of retinopathy, polyneuropathy, and nephropathy with underlying chronic kidney disease. Moreover, she also has diabetic macrovascular complications of carotid stenosis with coronary artery disease and a previous coronary artery bypass graft surgery as noted. She also has underlying peripheral arterial disease and vasculopathy. PLAN OF MANAGEMENT: We will initiate her premixed insulin regimen to optimize metabolic control. Because of the variability of her oral intake, we will give her a lower dose regimen at this time and we will titrate accordingly as indicated. We will start her with Humulin 70:30, given as 16 units before breakfast and 12 units before dinner, to start today. We will modify the coverage scale to obviate hypoglycemia and detailed orders have been given for a very low-dose correction scale using Humalog insulin as given. We will obtain serial chemistries and supplement accordingly as needed. We will also obtain a hemoglobin A1c to confirm her prior glycemic control and a lipid panel will also be added. We will follow and advise accordingly. Brenda Brothers MD
[2019-04-12 07:24] LABS: ALB/GLOB RATIO 1.1 (1.1-1.8); ALBUMIN 3.6 g/dL (3.0-4.8); CALCIUM 9.2 mg/dL (8.4-10.5)
[2019-04-12 07:53] LABS: BASO # 0.02 K/mm3 (0.0-2.0); BASO % 0.2 % (0.0-3.0); EOS # 0.3 (0.0-0.7); LYMPH # 1.8 (1.2-3.4); MEAN CELL VOLUME 78.6 fl (80.0-105.0); MEAN CORPUSCULAR HEMOGLOBIN 25.6 pg (25.0-35.0); MEAN CORPUSCULAR HGB CONC 32.6 g/dl (31.0-37.0); MEAN PLATELET VOLUME 10.8 fl (7.0-11.0); MONO # 0.8 (0.1-0.6); MONO % 9.2 % (1.0-6.0); RBC 5.04 10^6/uL (3.5-6.1); RED CELL DISTRIBUTION WIDTH 14.4 % (11.5-14.5); WHITE BLOOD COUNT 8.7 10^3/uL (4.5-11.0)
[2019-04-12] MEDS: Insulin Lispro (humaLOG) LOW Coverage SC SCH ×4 (07:57→21:28)
[2019-04-12] MEDS: Insulin Human NPH/Reg 70/30 Vial(3 ml) SC SCH ×2 (07:58→17:30)
[2019-04-12 08:08] LABS: HEMOGLOBIN 12.9 g/dL (12.0-16.0)
[2019-04-12] MEDS: Sodium Chloride 0.45% 1,000 ML IV SCH (08:37)
[2019-04-12] MEDS ORDERED: OLMESARTAN 40 MG PO SCH (11:30)
--- NOTE | 2019-04-12 15:07 | CT ---
Date of service: 04/11/2019 PROCEDURE: No arterial occlusion or significant arterial stenosis in CT Angiography of the Head and Neck. HISTORY: syncope COMPARISON: None available. TECHNIQUE: CT angiography of the head and neck was performed following intravenous contrast administration. Coronal and sagittal maximum intensity projection reformatted images were generated. Contrast Dose: Omnipaque 350, 100 cc Radiation dose: Total exam DLP = 422.1 mGy-cm. This CT exam was performed using one or more of the following dose reduction techniques: Automated exposure control, adjustment of the mA and/or kV according to patient size, and/or use of iterative reconstruction technique. FINDINGS: INTERNAL CEREBRAL ARTERIES: Note is made of partially calcified atherosclerosis of the bilateral cavernous internal carotid artery segments resulting in bilateral lihb-zp-tkygkifq cavernous ICA stenosis. The skull base, petrous, and supraclinoid segments are bilaterally widely patent. Trace plaque seen at the left ICA skull base segment. ANTERIOR CEREBRAL ARTERIES: Unremarkable. A1 and A2 segments are widely patent. Smaller distal branches unremarkable, as visualized. MIDDLE CEREBRAL ARTERIES: Unremarkable. M1 and M2 segments are widely patent. Perisylvian branches grossly symmetric. POSTERIOR CIRCULATION: Basilar Artery: Unremarkable. Distal Vertebral Arteries: Left dominant vertebrobasilar circulation identified. Limited hard plaque seen at the left greater than right intracranial vertebral arteries. Posterior Cerebral Arteries: Unremarkable. Posterior Inferior Cerebellar Arteries: Unremarkable. NECK CTA: Aortic Arch: A three vessel arch identified. Relatively extensive calcified mural plaque seen at the aortic arch. Common Carotid arteries: The bilateral common carotid appear patent from their origins to their bifurcations with relatively prominent atherosclerotic plaque calcified at the left greater than right carotid bulb regions and with very mildly distributed calcified plaque in short segments of the bilateral common carotid arteries proximal to the bifurcations. No evidence to suggest common carotid artery dissection. Internal Carotid arteries: No significant stenosis is appreciated throughout the cervical internal carotid artery segments bilaterally and there is no evidence of dissection either. External Carotid arteries: Appear unremarkable bilaterally. Vertebral arteries: The bilateral vertebral arteries appear normal in caliber from their origins to their distal cervical segments. No significant stenosis or definite pattern of dissection. ANEURYSM/ VASCULAR MALFORMATIONS: None. OTHER FINDINGS: None. IMPRESSION: 1. No large vessel occlusion or high-grade stenosis identified within the intracranial major central arterial circulation. No aneurysm or dissection pattern appreciated throughout the exam. 2. Volz-yj-vypltytv stenoses are identified at the bilateral cavernous internal carotid artery segments bilaterally as discussed above. 3. Mild bilateral carotid bulbar hard plaque without significant stenosis resulting. 4. Patent vertebrobasilar system, left dominant.
--- NOTE | 2019-04-12 16:23 | PN ---
DATE: 04/12/2019 SUBJECTIVE: The patient is a 78-year-old, who had attack of syncope, etiology unclear that it was vasovagal or hypoglycemia because she did have low hemoglobin in 50s. is trying to monitor her sugar and find appropriate dose; however, she had workup done that shows bilateral carotid stenosis. Awaiting CTA report. Due to fall, the patient sustained injury to her left ankle, awaiting the swelling to go down to have heart cath placed by orthopedic team. PHYSICAL EXAMINATION: GENERAL: The patient is awake and alert, able to communicate. VITAL SIGNS: She is afebrile, pulse 75, respirations 18, blood pressure 147/58. LUNGS: Bilateral fair airflow. No rhonchi or crackles. HEART: S1 and S2, audible. ABDOMEN: Soft and nontender. No rebound. No guarding. NEUROLOGIC: The patient is awake and alert, able to communicate. EXTREMITIES: Left foot is in the dressing. LABORATORY DATA: WBC 8.7, hemoglobin 12.9, hematocrit 39.6, platelets 142. Chemistry: Sodium 140, potassium 3.8, chloride 105, CO2 of 20, BUN 30, creatinine 1.5, and blood sugar of 81. DIAGNOSTIC DATA: CTA of the neck is pending. ASSESSMENT: 1. Status post fall. 2. Left ankle injury with malleolar fracture. 3. Bilateral moderate carotid stenosis. 4. Displaced oblique fracture traversing the distal aspect of the lateral malleolus with significant lateral and anterior soft tissue swelling. 5. Insulin-dependent diabetes. 6. Hepatogenous hyperlipidemia. 7. Coronary artery disease, status post open heart surgery in remote past. PLAN: At this point, we can discontinue her telemetry. Physical therapy as recommended, subacute rehab. Awaiting Dr. Jesus Momin's input that if the patient can be discharged to subacute rehab now and get heart cath placed later on or he want to put the cath before we discharge the patient. We will try to communicate with them and we will make disposition plan according to ortho team. I will discontinue IV fluids and blood sugar is being managed by . Mitchell Maradiaga MD [facility] # [id number]
[2019-04-12] MEDS: HYDROmorphone 2 mg/ml ISec IVP PRN (21:28)
[2019-04-12] MEDS ORDERED: METOPROLOL TARTRATE 50 MG PO SCH (22:00)
[2019-04-13] MEDS: Insulin Lispro (humaLOG) LOW Coverage SC SCH ×4 (08:13→22:02)
[2019-04-13] MEDS: Insulin Human NPH/Reg 70/30 Vial(3 ml) SC SCH ×2 (08:13→16:59)
[2019-04-13] MEDS: Enoxaparin 30 mg Syringe SC SCH (09:56)
--- NOTE | 2019-04-13 11:02 | PN ---
DATE: 04/13/2019 SUBJECTIVE: The patient has no complaints of any chest pain. No shortness of breath. No headaches or dizziness. PHYSICAL EXAMINATION: VITAL SIGNS: Temperature is 98.1, pulse is 76, blood pressure 169/72 and respirations are 19. GENERAL: The patient is lying in bed, flat, comfortable. HEENT: No oral lesion. Anicteric sclerae. Moist mucosa. NECK: No JVD, adenopathy, or thyromegaly. CARDIOVASCULAR: S1 and S2, regular. No murmurs, rubs, or gallops. LUNGS: Clear to auscultation bilaterally. No wheeze, rales, or rhonchi. ABDOMEN: Bowel sounds are positive, soft, nontender and nondistended. EXTREMITIES: No cyanosis, clubbing or edema. LABORATORY DATA: White count of 8.7 and hemoglobin 12.9. Creatinine is 1.4. CTA of the head and neck done, shows no large vessel occlusion, there is lfnu-oo-qagtcrhv stenosis. ASSESSMENT: 1. Fall. 2. Left ankle fracture/malleolar fracture. 3. Bilateral carotid artery stenosis. 4. Diabetes type II. 5. Dyslipidemia. 6. Coronary artery disease. PLAN: The patient is currently on Losartan for hypertension and Dilaudid for pain. She is on aspirin for the coronary artery disease. The patient is on insulin for diabetes. She is on Lovenox for DVT prophylaxis. The patient is on Norvasc for hypertension. Reg Lawrence MD
--- NOTE | 2019-04-13 16:39 | PN ---
DATE: 04/13/2019 ENDO FOLLOWUP NOTE LOCATION: Room 267. SUBJECTIVE: This is a 78-year-old female with recent uncontrolled type 2 insulin-requiring diabetes, now being followed closely for metabolic management. She presented here with a syncopal episode and subsequent fall at home and sustained a fracture in the left ankle area in the lateral malleolus of the fibular bone distally as noted. She currently has a splint in place as noted. Her glycemic levels however are fluctuating with the variability of her oral intake as noted. Her glucose values have ranged from 106-271 and 299 mg/dL. LABORATORY DATA: Her chemistry showed a BUN of 30, sodium 140, potassium 3.8, chloride 105, CO2 of 28, glucose 80 and creatinine 1.4. Her A1c is 6.7% which is actually optimal in terms of her outpatient diabetic management. ASSESSMENT: This is a 78-year-old female with recent uncontrolled type 2 insulin-requiring diabetes with extremes of glycemic fluctuations from hypoglycemia to hyperglycemic accelerations with the variability of her oral intake as noted. She presented here with the left distal fibular fracture in the left ankle area following a fall at home as noted. PLAN OF MANAGEMENT: We will continue the modified premixed insulin regimen as given with Humulin 70/30 given as 16 units before breakfast and 12 units before dinner as ordered to allow for full dose equilibration. We will also continue the low-dose correction scale using regular insulin as given. We will observe serial chemistries and supplement accordingly as needed. We will follow. Brenda Brothers MD
[2019-04-13] MEDS: HYDROmorphone 2 mg/ml ISec IVP PRN (21:49)
[2019-04-14] MEDS: HYDROmorphone 2 mg/ml ISec IVP PRN ×2 (03:00→07:41)
[2019-04-14] MEDS: Insulin Lispro (humaLOG) LOW Coverage SC SCH ×4 (07:41→21:28)
[2019-04-14] MEDS: Insulin Human NPH/Reg 70/30 Vial(3 ml) SC SCH ×2 (08:26→17:33)
--- NOTE | 2019-04-14 12:15 | PN ---
DATE: 04/14/2019 SUBJECTIVE: The patient has no complaints of any chest pain or shortness of breath. No headaches or dizziness. PHYSICAL EXAMINATION: VITAL SIGNS: Temperature is 98.4, pulse of 64, blood pressure 151/63, respirations 20. GENERAL: The patient is lying in bed, flat, comfortable. HEENT: No oral lesion. Anicteric sclerae. Moist mucosa. NECK: No JVD, adenopathy, or thyromegaly. CARDIOVASCULAR: S1 and S2, regular. No murmurs, rubs, or gallops. LUNGS: Clear to auscultation bilaterally. No wheeze, rales, or rhonchi. ABDOMEN: Bowel sounds are positive, soft, nontender and nondistended. EXTREMITIES: no cyanosis, clubbing or edema. LABORATORY DATA: Creatinine is 1.4. ASSESSMENT: 1. Fall. 2. Left ankle fracture/malleolar fracture. 3. Bilateral carotid artery stenosis. 4. Diabetes type 2. 5. Dyslipidemia. 6. Coronary artery disease. PLAN: The patient does have episodes of confusion. She has mild to moderate stenosis in the bilateral cavernous internal carotid arteries based on a CTA that was done. The patient is currently on Ativan for agitation. She is on losartan for hypertension. She is on aspirin for her carotid disease. She is on diabetes medications with NPH. She is on Lovenox for DVT prophylaxis. She is on Norvasc for hypertension. She is on risperidone. She is on heart healthy diet. I am going to discontinue her telemetry . Reg Lawernce MD
[2019-04-14] MEDS: Enoxaparin 30 mg Syringe SC SCH (12:29)
--- NOTE | 2019-04-14 15:38 | PN ---
DATE: 04/14/2019 LOCATION: Room 267. SUBJECTIVE: This is a 78-year-old female with recent uncontrolled type 2 insulin-requiring diabetes presenting here with a syncopal episode and a subsequent fall and sustained a left fibular fracture and is now being followed closely for metabolic management. Her glycemic levels however are fluctuating with the variability of her oral intake as noted. Her glucose values have ranged from 119 to 134 and 279 mmHg. Her chemistry showed a BUN of 30, sodium 140, potassium 38, chloride 105, CO2 of 28, glucose 80, and creatinine 1.4. Her hemoglobin A1c is 6.7%, which is near optimal as noted. ASSESSMENT: This is a 78-year-old female with recent uncontrolled type 2 insulin requiring diabetes who accidentally had a syncopal episode and sustained a left distal fibula fracture and is now being followed closely for metabolic. PLAN OF MANAGEMENT: We will modify her current premix insulin regimen and increase the Humulin 70/30 to 18 units before meals breakfast to start tomorrow morning as ordered. We will continue the Humulin 70/30 given as 12 units subcu before meals and dinner to start tonight. We will also continue the low-dose correction scale using Humalog insulin as given. We will obtain serial chemistries and supplement accordingly as needed. We will follow with you. Brenda Brothers MD
[2019-04-15] MEDS: HYDROmorphone 2 mg/ml ISec IVP PRN (00:47)
[2019-04-15 06:56] LABS: BASO # 0.03 K/mm3 (0.0-2.0); BASO % 0.3 % (0.0-3.0); EOS # 0.2 (0.0-0.7); EOS % 1.9 % (1.5-5.0); HEMOGLOBIN 13.1 g/dL (12.0-16.0); LYMPH # 2.9 (1.2-3.4); MEAN CELL VOLUME 78.4 fl (80.0-105.0); MEAN CORPUSCULAR HEMOGLOBIN 25.3 pg (25.0-35.0); MEAN CORPUSCULAR HGB CONC 32.3 g/dl (31.0-37.0); MEAN PLATELET VOLUME 10.2 fl (7.0-11.0); MONO # 0.7 (0.1-0.6); MONO % 6.1 % (1.0-6.0); RBC 5.18 10^6/uL (3.5-6.1); RED CELL DISTRIBUTION WIDTH 14.1 % (11.5-14.5); WHITE BLOOD COUNT 11.9 10^3/uL (4.5-11.0)
[2019-04-15 07:33] LABS: ALB/GLOB RATIO 1.1 (1.1-1.8); CALCIUM 9.5 mg/dL (8.4-10.5)
[2019-04-15] MEDS: Insulin Lispro (humaLOG) LOW Coverage SC SCH ×4 (08:39→23:45)
[2019-04-15] MEDS: Insulin Human NPH/Reg 70/30 Vial(3 ml) SC SCH ×2 (09:20→17:56)
[2019-04-15] MEDS: Enoxaparin 30 mg Syringe SC SCH (09:23)
--- NOTE | 2019-04-15 09:58 | PN ---
DATE: 04/12/2019 ENDOCRINOLOGY FOLLOWUP NOTE LOCATION: Room 267. SUBJECTIVE: This is a 78-year-old female with recent uncontrolled type 2 insulin-requiring diabetes with extremes of glycemic fluctuations related to the variability of her oral intake who presents here with a syncopal episode and sustained a left ankle fracture in the distal fibula and is now being followed closely for metabolic management. Her glycemic levels overnight were fluctuating, but improved and have ranged from 81 to 108 and 219 mg/dL. LABORATORY DATA: Her chemistries today showed a BUN of 30, sodium 140, potassium 3.8, chloride 105, CO2 28, glucose 80 and creatinine 1.4. ASSESSMENT: This is a 78-year-old female with uncontrolled and decompensated type 2 insulin-requiring diabetes, presenting here with a syncopal event and sustained a left ankle fracture in the distal fibula and currently with a splint in place as noted. PLAN OF MANAGEMENT: We will continue the modified premixed insulin regimen as given with Humulin 70/30 given as 16 units before breakfast and 12 units before dinner to start today. We will modify her correction scale to a low-dose algorithm using Humalog insulin as given. We will obtain serial chemistries and supplement accordingly as needed. We will also obtain serial thyroid studies accordingly. We will follow. Brenda Brothers MD
--- NOTE | 2019-04-15 10:48 | CARD ---
APPROVED REPORT Date of service: 04/11/2019 EXAM: Two-dimensional and M-mode echocardiogram with Doppler and color Doppler. INDICATION Dizziness and Vertigo 2D DIMENSIONS Left Atrium (2D)3.6 (1.6-4.0cm)IVSd1.6 (0.7-1.1cm) LVDd3.3 (3.9-5.9cm)PWd1.4 (0.7-1.1cm) LVDs2.3 (2.5-4.0cm)FS (%) 30.9 % LVEF (%)59.9 (>50%) M-Mode DIMENSIONS Aortic Root2.90 (2.2-3.7cm)Aortic Cusp Exc.1.40 (1.5-2.0cm) Aortic Valve AoV Peak Lfoeexbk578.0cm/sAoV VTI32.9cmAO Peak GR.9mmHg LVOT Peak Junarzam442.0cm/sLVOT VTI21.00cmAO Mean GR.6mmHg Mitral Valve MV E Dpnmckyn70.8cm/sMV A Vcgquasc470.0cm/sE/A ratio0.6 TDI Lateral E' Peak V4.97cm/sE/Lateral E'15.5E/Medial E'0.0 Pulmonary Valve PV Peak Ivmxwdwa410.0cm/sPV Peak Grad.4mmHg LEFT VENTRICLE There is moderate concentric left ventricular hypertrophy. The left ventricular function is normal. The left ventricular ejection fraction is within the normal range. RIGHT VENTRICLE The right ventricle is normal size. ATRIA The left atrium is mildly dilated. The right atrium size is normal. AORTIC VALVE The aortic valve is calcified but opens well. MITRAL VALVE The mitral valve is calcified but opens well. Mitral regurgitation is mild. TRICUSPID VALVE The tricuspid valve leaflets are thickened , but open well. There is trace to mild tricuspid regurgitation. There is no pulmonary hypertension. PERICARDIAL EFFUSION There is no pericardial effusion. <Conclusion> LVH with good LV function DIlated LA Calcified AOV without stenosis Mild MR and TR No pulmonary hypertension
--- NOTE | 2019-04-15 13:44 | PN ---
DATE: 04/15/2019 SUBJECTIVE: The patient is resting comfortably. PHYSICAL EXAMINATION: VITAL SIGNS: Blood pressure 150/65, heart rates in the 60s. NECK: Negative JVD. LUNGS: Without rales. HEART: Reveal S1, S2. EXTREMITIES: Without edema. LABORATORY DATA: Hemoglobin is 13.1. Chemistries; BUN and creatinine unremarkable. The glucose is 172. IMPRESSION: 1. Status post syncope. 2. No evidence for left ventricular outflow obstruction. 3. Diabetes mellitus. 4. History of coronary artery bypass surgery. 5. Stable angina. 6. Hypercholesterolemia. Given these findings, there are no acute cardiac issues at this time. Her sugar is currently being controlled. Kevin Borrego MD
--- NOTE | 2019-04-15 15:00 | PN ---
DATE: 04/15/2019 SUBJECTIVE: The patient is a 78-year-old, seen and examined, lying in bed, seems to be comfortable. Denies any chest pain. No shortness of breath. No nausea or vomiting. No diarrhea. PHYSICAL EXAMINATION: VITAL SIGNS: She is afebrile. Pulse 65, respirations 18, blood pressure 115/65. LUNGS: Bilateral fair airflow. No rhonchi or crackle. HEART: S1 and S2 audible. ABDOMEN: Soft and nontender. No rebound. No guarding. NEUROLOGICAL: The patient is awake and alert, able to communicate, but confused and disoriented. EXTREMITIES: Bilateral leg, no edema; however, her foot is rapid dressing. LABORATORY DATA: WBC is 11.9, hemoglobin 13, hematocrit 40, platelet 172. Chemistry; sodium 142, potassium 3.8, chloride 106, CO2 of 23, BUN 20, creatinine 1.2, blood sugar of 169. ASSESSMENT: 1. Insulin dependent diabetes. 2. Status post syncope, probably secondary to hypoglycemia. 3. Bilateral cavernous internal carotid segment bilaterally, [id number] stenosis, bilateral carotid bulbar, heart flutter without significant stenosis. 4. Hypertension. 5. Hyperlipidemia. 6. Status post fall and left ankle injury with malleolar fracture. PLAN: Discussed with Dr. Kevin Morris; there is no indication for any intervention for carotid stenosis. She is nonfocal and we need to watch. Continue her on aspirin and continue her on statins. We will discuss with social services manager for subacute rehab, disposition plan. Mitchell Maradiaga MD
--- NOTE | 2019-04-15 16:27 | CP.PCM.PN ---
Subjective - Date & Time of Evaluation Date of Evaluation: 04/15/19 Time of Evaluation: 16:22 - Subjective Subjective: Patient seen and examined. Denies any significant pain, numbness or tingling. Patient has been in the posterior leg splint. Can proceed with cast immobilization at this time for the minimally displaced lateral malleolus fracture. LLE: splint removed. Swelling improved. Mild swelling laterally. Marked tenderness over the lateral malleolus. Small 1cm abrasion over the medial aspect of the midfoot. Calf and thigh soft and non-tender. Short leg cast was applied. +AROM toes. Cont NWB LLE, elevation and cast immobilization Patient cleared from ortho standpoint Can follow up in Dr. Momin's office in 4 weeks Will review post cast x-rays Discussed above with Dr. Momin, agrees with above. Objective - Vital Signs/Intake and Output Vital Signs (last 24 hours): Temp Pulse Resp BP Pulse Ox 99.6 F 79 18 143/64 94 L 04/15/19 14:17 04/15/19 14:17 04/15/19 14:17 04/15/19 14:17 04/15/19 14:17 Intake and Output: 04/15/19 04/15/19 06:59 18:59 Intake Total 460 Balance 460 - Medications Medications: Current Medications Amlodipine Besylate (Norvasc) 10 mg PO DAILY [facility] Last Admin: 04/15/19 09:19 Dose: 10 mg Aspirin (Ecotrin) 81 mg PO DAILY [facility] Last Admin: 04/15/19 09:19 Dose: 81 mg Atorvastatin Calcium (Lipitor) 20 mg PO DIN [facility] Clopidogrel Bisulfate (Plavix) 75 mg PO DAILY [facility] Last Admin: 04/15/19 09:19 Dose: 75 mg Enoxaparin Sodium (Lovenox) 30 mg SC DAILY [facility]; Protocol Last Admin: 04/15/19 09:23 Dose: 30 mg Hydromorphone HCl (Dilaudid) 1 mg IVP Q4H PRN PRN Reason: Pain, moderate (4-7) Insulin Human Lispro (Humalog Low) 0 units SC [facility]; Protocol Last Admin: 04/15/19 16:01 Dose: Not Given Losartan Potassium (Cozaar) 100 mg PO DAILY [facility] Last Admin: 04/15/19 09:26 Dose: 100 mg Metoprolol Tartrate (Lopressor) 50 mg PO HS [facility] Last Admin: 04/14/19 21:24 Dose: 50 mg Risperidone (Risperdal Tab) 0.25 mg PO BID PRN; Protocol PRN Reason: Agitation Last Admin: 04/14/19 21:23 Dose: 0.25 mg - Labs Labs: 04/15/19 06:30 04/15/19 06:30
--- NOTE | 2019-04-15 17:23 | RAD ---
Date of service: 04/15/2019 PROCEDURE: Left Ankle Radiographs. HISTORY: s/p cast immobilization. lateral mall fx COMPARISON: 04/10/2019 TECHNIQUE: 3 views obtained. FINDINGS: BONES: Cast obscures fine bony details. Again seen is an acute nondisplaced fracture in the lateral malleolus. Bone alignment is normal. There is periarticular bone demineralization JOINTS: Normal. No osteoarthritis. Ankle mortise maintained. Talar dome intact SOFT TISSUES: Moderate lateral soft tissue swelling. OTHER FINDINGS: None. IMPRESSION: Cast obscures fine bony details, redemonstration of acute nondisplaced fracture in the lateral malleolus with overlying moderate lateral soft tissue swelling.
--- NOTE | 2019-04-15 18:08 | CON ---
DATE OF CONSULTATION: 04/15/2019 TIME: 12:15 p.m. CHIEF COMPLAINT/HISTORY OF PRESENT ILLNESS: This is a 78-year-old female, who was admitted after a fall and presumed syncopal episode. Carotid imaging, which I reviewed, revealed a 70% left ICA stenosis proximally, but there was a fair amount of calcification and shadowing. The carotid ultrasound was limited. I reviewed the patient's carotid CTA, which showed heavy calcification of the terminal left common carotid artery with a 70% stenosis. No obvious infarct was seen on noncontrast CT imaging. There are chronic small vessel ischemic changes. The patient denies any localizing symptoms. PAST MEDICAL HISTORY: Her past medical history is significant for coronary artery disease status post bypass, hyperlipidemia, and diabetes. At the current time I recommend managing the patient medically. She should be placed on antiplatelet therapy, statins and adequate blood pressure control. A followup carotid ultrasound should be performed in 6 months. If localizing symptoms develop, additional evaluation of the stenosis with MRA or conventional arteriography can be considered. Kevin Morris MD [facility]
--- NOTE | 2019-04-15 21:44 | PN ---
DATE: 04/15/2019 ENDOCRINOLOGY FOLLOWUP NOTE LOCATION: Room 563. SUBJECTIVE: This is a 78-year-old female with recent uncontrolled type 2 insulin-requiring diabetes, presenting here with a recent fall following a syncopal event and sustained a left ankle fracture and is now being followed closely for metabolic management. Her glycemic levels are fluctuating with the variability of her oral intake as noted. Her glucose levels have ranged from 169-211 mg/dL. It was 386 at dinner time yesterday as noted. LABORATORY DATA: Her chemistry showed a BUN of 20, sodium 142, potassium 3.8, chloride 106, CO2 of 23, glucose 172 and creatinine 1.2. ASSESSMENT: This is a 78-year-old female with recent uncontrolled type 2 insulin-requiring diabetes, now being followed closely for metabolic management with recent hyperglycemic accelerations as noted thereof. She also has had episodic bouts of symptomatic hypoglycemia with associated neuroglycopenic and hyperadrenergic manifestations related to the variability of her oral intake as noted. She had a recent syncopal event with subsequent fall sustaining a left distal fibular fracture as noted. PLAN OF MANAGEMENT: We will continue the premixed same dosing of her premixed insulin regimen with Humulin 70/30 given as 18 units before breakfast and 12 units before dinner as ordered. We will continue also her low-dose correction scale using Humalog insulin as given. We will obtain serial chemistries and supplement accordingly needed. We will follow. Brenda Brothers MD
[2019-04-15] MEDS: HYDROmorphone 1 mg/ml ISec IVP PRN (23:56)
[2019-04-16] MEDS: Insulin Lispro (humaLOG) LOW Coverage SC SCH ×2 (08:11→11:30)
[2019-04-16] MEDS: Insulin Human NPH/Reg 70/30 Vial(3 ml) SC SCH (08:16)
[2019-04-16] MEDS: Enoxaparin 30 mg Syringe SC SCH (10:43)
[2019-04-16] MEDS: HYDROmorphone 1 mg/ml ISec IVP PRN (10:43)
[2019-04-16 14:40] VITALS: BP 159/63; PULSE 77; RESP 16; TEMP 99.5; O2SAT 94
--- NOTE | 2019-04-16 15:29 | PN ---
DATE: 04/16/2019 LOCATION: Room 563. SUBJECTIVE: This is a 78-year-old female with recent uncontrolled type 2 insulin-requiring diabetes, presenting here with a left ankle fracture and is now being followed closely for metabolic management. Her glycemic levels are fluctuating but improved with the oral intake now much better as noted. Her glucose levels have ranged from 164 to 199 mg/dL. It was 203 at bedtime last night. Her chemistry showed a BUN of 20, sodium 142, potassium 3.8, chloride 106, CO2 of 23, glucose 172, and creatinine 1.2. ASSESSMENT: This is a 78-year-old female with uncontrolled and decompensated type 2 insulin-requiring diabetes with recent hyperglycemic accelerations interspersed with occasional bouts of symptomatic hypoglycemia related to the variability of her oral intake as noted. She developed a recent syncopal episode with an accidental fall and sustained a left ankle fracture in the distal fibula as noted. PLAN OF MANAGEMENT: We will continue the beta the recent premixed insulin regimen as modifying with Humulin 70/30 given as 18 units before breakfast and 12 units before dinner as ordered. We will obtain serial chemistries and supplement accordingly as needed. We will follow and advise accordingly. Brenda Brothers MD
--- NOTE | 2019-04-17 03:19 | DS ---
HISTORY OF PRESENT ILLNESS: The patient is a 78-year-old who came to emergency room after she had syncope attack probably secondary to hypoglycemia, had neuro workup done. Carotid Doppler shows significant stenosis, has CTA done, was evaluated by Dr. Kevin Morris and there is no need for any stent or intervention; however, she need to be followed up in 6 months and was recommended to start antiplatelet therapy and strict control of her LDL. PHYSICAL EXAMINATION: GENERAL: She looks comfortable. She is awake, alert, and able to communicate and somewhat forgetful. VITAL SIGNS: She is afebrile, pulse 68, respirations 18, and blood pressure 132/57. LUNGS: Bilateral fair airflow. No rhonchi or crackle. HEART: S1 and S2 audible. ABDOMEN: Soft and nontender. No rebound. No guarding. NEUROLOGIC: The patient is awake, alert, and able to communicate. LABORATORY DATA: WBC 11.9, hemoglobin 13, hematocrit 40, and platelet 172. Chemistry; blood sugar is 164. ASSESSMENT: 1. Status post syncope, probably secondary to hypoglycemia. 2. Status post fall and left ankle fracture. 3. Carotid stenosis 70% not significant for any intervention. PLAN: The patient was seen by Orthopedic and cleared from Ortho point of view and will be transferred to subacute rehab with nonweightbearing left lower extremity elevation and cast immobilization. The patient will follow up with Dr. Momin in 4 weeks and we will talk to social media analyst to make disposition plan today. Mitchell Maradiaga MD
== END 2019-04-16 16:15 | DRG 639 ==
LOC: ED 13:36 → ERH 16:37 → 2RNO 18:18 → OBSVTOIN 18:33 → 5RNO 04-14 13:28
PROVIDERS: ADMIT Internal Medicine; ATTEND Internal Medicine
DX: E11.649 Type 2 diabetes mellitus with hypoglycemia without coma (principal); S82.62XA Displaced fracture of lateral malleolus of left fibula, initial encounter for closed fracture; S80.01XA Contusion of right knee, initial encounter; W19.XXXA Unspecified fall, initial encounter; I25.118 Atherosclerotic heart disease of native coronary artery with other forms of angina pectoris; I65.23 Occlusion and stenosis of bilateral carotid arteries; E11.22 Type 2 diabetes mellitus with diabetic chronic kidney disease; E11.42 Type 2 diabetes mellitus with diabetic polyneuropathy; E11.319 Type 2 diabetes mellitus with unspecified diabetic retinopathy without macular edema; E11.21 Type 2 diabetes mellitus with diabetic nephropathy; E11.51 Type 2 diabetes mellitus with diabetic peripheral angiopathy without gangrene; E11.65 Type 2 diabetes mellitus with hyperglycemia; E78.5 Hyperlipidemia, unspecified; N18.9 Chronic kidney disease, unspecified; E78.00 Pure hypercholesterolemia, unspecified; I25.2 Old myocardial infarction; I12.9 Hypertensive chronic kidney disease with stage 1 through stage 4 chronic kidney disease, or unspecified chronic kidney disease; Y92.009 Unspecified place in unspecified non-institutional (private) residence as the place of occurrence of the external cause; Z79.4 Long term (current) use of insulin; Z95.1 Presence of aortocoronary bypass graft